=== PATIENT | female | born 1935 | race Caucasian/White ===

== ENCOUNTER 2021-10-03 11:15 | Outpatient (RCR) | payer MEDICARE, SELFPAY | END 2021-11-18 11:22 | disposition home or self-care (01) | PROVIDERS: PCP Internal Medicine; Visit Provider Orthopaedic Surgery Sports Medicine | DX: M25.551 Pain in right hip (principal); Z51.89 Encounter for other specified aftercare | CPT/HCPCS: 97110 ==

== ENCOUNTER 2022-06-30 10:54 | Outpatient (CLI) | payer MEDICARE, SELFPAY ==
--- NOTE | 2022-06-30 11:30 | CRLHL7_ITS ---
For Patients: As a result of the Century Cures Act, medical imaging exams and procedure reports are released immediately into your electronic medical record. You may view this report before your referring provider. If you have questions, please contact your health care provider. BILATERAL SCREENING MAMMOGRAM WITH COMPUTER-AIDED DETECTION AND TOMOSYNTHESIS TECHNIQUE: CC and MLO views were obtained. These mammographic images have been obtained using full-field digital technique. These mammographic images were interpreted with the benefit of computer-aided detection. Breast Tomosynthesis was used in this interpretation. COMPARISON FILM: 04/24/17, 08/18/15, 06/08/14. FINDINGS: There are scattered areas of fibroglandular density IMPRESSION: There is no radiographic evidence for malignancy. ASSESSMENT: BI-RADS Category 2: Benign RECOMMENDATION: Routine screening mammogram in 1 year. A lay language report of this examination will be provided to the patient. Jai Wright M.D. Diagnostic/Nuclear Medicine Radiologist [email or web address] LILI/Dictated by: Jai Wright MD @ 07/03/2022 8:20:00 AM (Electronically Signed)
== END 2022-06-30 10:55 | disposition home or self-care (01) ==
LOC: MAMMO 10:55
PROVIDERS: PCP Internal Medicine; Visit Provider Internal Medicine
DX: Z12.31 Encounter for screening mammogram for malignant neoplasm of breast (principal)
CPT/HCPCS: 77063; 77067

== ENCOUNTER 2022-12-15 12:10 | Outpatient (CLI) | payer MEDICARE, SELFPAY | END 2022-12-15 12:11 | disposition home or self-care (01) | LOC: AMB 12-17 13:40 | PROVIDERS: PCP Internal Medicine; Visit Provider Family Medicine | DX: R53.1 Weakness (principal) | CPT/HCPCS: A0998 ==

== ENCOUNTER 2022-12-15 15:25 | Outpatient (CLI) | payer MEDICARE, SELFPAY | END 2022-12-15 15:26 | disposition home or self-care (01) | LOC: AMB 12-18 19:00 | PROVIDERS: PCP Internal Medicine; Visit Provider Family Medicine | DX: R53.1 Weakness (principal) | CPT/HCPCS: A0425; A0427 ==

== ENCOUNTER 2022-12-15 15:58 | Observation (INO) | payer MEDICARE, SELFPAY ==
[2022-12-15 16:00] VITALS: BP 143/82; PULSE 81; RESP 16; TEMP 36.8; O2SAT 95; BMI 29.8
--- NOTE | 2022-12-15 16:16 | CRLHL7_ITS ---
For Patients: As a result of the Century Cures Act, medical imaging exams and procedure reports are released immediately into your electronic medical record. You may view this report before your referring provider. If you have questions, please contact your health care provider. INDICATION: weakness, falls, left leg weakness. TECHNIQUE: Head CT without contrast. COMPARISON: None. FINDINGS: CSF spaces: Within normal limits for age. Brain parenchyma and extra-axial spaces: There are nonspecific low attenuation white matter changes consistent with chronic microvascular disease. Mild diffuse cerebral atrophy. There is mild dilatation of the bilateral lateral ventricles and 3rd ventricle. No sign of mass, hemorrhage, or midline shift. Skull base and calvarium: The visualized paranasal sinuses and mastoid air cells demonstrate no acute or significant findings. The visualized orbits are grossly unremarkable. No skull fractures. IMPRESSION: No acute intracranial process identified. Chronic findings including small vessel ischemic changes and diffuse cerebral atrophy. Enlargement of the bilateral lateral ventricles and 3rd ventricle felt to be slightly more than the visualized atrophy. This can be seen in the setting of normal pressure hydrocephalus. Correlate with clinical and laboratory findings, and consider further valuation with MRI. Please note that all CT scans at this facility use dose modulation, iterative reconstruction, and/or weight-based dosing when appropriate to reduce radiation dose to as low as reasonably achievable. Dictated by Chi Garcia MD @ 12/15/2022 6:07:34 PM (Electronically Signed)
[2022-12-15 16:22] LABS: Lactate* 0.8 mmol/L (0.5-1.9)
[2022-12-15 16:24] LABS: Basophils Absolute Auto 0.03 K/uL (0.00-0.30); Basophils Percent Auto 0.4 % (0.0-3.0); Eosinophils Absolute Auto 0.16 K/uL (0.00-0.50); Eosinophils Percent Auto 2.1 % (0.0-7.0); Hematocrit 40.2 % (33.0-51.0); Hemoglobin* 12.9 gm/dL (12.0-16.0); Immature Granulocytes Abs Auto 0.02 K/uL (0.00-0.30); Immature Granulocytes Pct Auto 0.3 %; Lymphocytes Percent Auto 7.2 % (20-44); Mean Corpuscular HGB Conc 32 gm/dL (32-36); Mean Corpuscular Hemoglobin 30 pg (26-34); Mean Corpuscular Volume 93 fL (80-100); Monocytes Percent Auto 8.5 % (0.0-11.0); Neutrophils Percent Auto 81.5 % (42.0-72.0); Platelet Count* 269 K/uL (140-440); RDW Coefficient of Variation % 13.6 % (11.5-15.5); Red Blood Count 4.31 m/uL (4.00-5.20); White Blood Count* 7.53 K/uL (4.50-11.00)
[2022-12-15 16:30] LABS: Slide Review Reflex No
[2022-12-15] MEDS: 0.9 % SODIUM CHLORIDE 1000 ml 1,000 ML IV ×2 (16:30→20:44)
--- NOTE | 2022-12-15 16:32 | ED_ITS ---
HPI - General Adult General Date Seen: 12/15/22 Chief complaint: Weakness Stated complaint: Weakness Time Seen by Provider: 12/15/22 16:15 History of Present Illness HPI narrative: This is a pleasant 87-year-old female who presents to the ER today by EMS from her assisted living for evaluation of generalized weakness and falls. History from EMS is that she is generally healthy and has not had any recent illnesses. She did have her coronavirus and influenza vaccines yesterday. She was weak this morning when she got up out of bed and had an episode where she slid onto the floor while trying to put her pants on this morning. EMS responded to that and did a lift assist. She declined transport during her 1st fall. Later on she had laid down on the couch but then was too weak to get off the couch so EMS was called again. They brought her here. She has been mildly nauseous all day. They administered 4 mg of Zofran ODT and she is now feeling better. Her vitals are stable. She had no other complaints. History from the patient is that she has been healthy and well lately. No recent fever, chills, cough, shortness of breath, vomiting, or diarrhea. No urinary symptoms. She did get her vaccines yesterday. She notes that she was very tired and run down last night so she went to bed early. She slept all night from 9:00 p.m. until 7:30 a.m. when she woke up. She notes when she woke up this morning that her left leg seemed to be a little bit weak. No numbness. No weakness in her right leg or other extremities. She also just felt a little bit run down and weak all over. She had trouble putting her pants on. But she is trying to put her pants on and pulled him up she slid off the edge of her bed and down onto the floor. She was not injured when she fell. She recalls that she did have EMS respond for lift assist but she declined transport at that time. She regrets that decision because subsequently she was able to walk out into her apartment and sit in a chair. She did need a little bit for breakfast and had some peanut butter bread for lunch. She laid down on the couch this afternoon and was too weak to get up again. She has no other complaints. She did hit her head. No headache. No blurry vision. She was nauseous but that is improved after Zofran. No vomiting today. No diarrhea. No black or bloody stools. No dysuria, urgency, frequency. No abdominal pain. No chest pain. No palpitations. She does note that her left leg does feel a bit weaker than her right leg. No other focal weakness or numbness. She has no previous history of strokes. No previous history of cardiovascular disease. No diabetes. No seizures. No cancer. She is not on any routine prescription medications. She does have arthritis and has some chronic pain in her right hip. She has seen orthopedics for that in the past and was told that she is not a candidate for hip replacement surgery. 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, [facility]) Status post arthroscopic surgery of right knee (06/06/10) ?Z98.890 - Other specified postprocedural states (ICD-10) History of tonsillectomy (06/06/10) ?Z90.89 - Acquired absence of other organs (ICD-10) History of laparoscopic cholecystectomy (12/03/14) ?Z90.49 - Acquired absence of other specified parts of digestive tract (ICD- 10) History of section ?Z98.891 - History of uterine scar from previous surgery (ICD-10) History of blepharoplasty (2004) ?Z98.890 - Other specified postprocedural states (ICD-10) History of bilateral cataract extraction (2019) ?Z98.41 - Cataract extraction status, right eye (ICD-10) ?Z98.42 - Cataract extraction status, left eye (ICD-10) History of appendectomy (1942) ?Z90.49 - Acquired absence of other specified parts of digestive tract (ICD- 10) Exam Narrative: Exam Narrative: Constitutional: Appears well-developed and well-nourished. Alert. Conversant. Non toxic. HENT: Head: Atraumatic. Nose: Nose normal. Mouth/Throat: Oral mucosa is clear and moist. no trismus. Pharynx normal. Tonsils symmetric. No tonsillar enlargement, erythema, or exudate. Eyes: Conjunctivae normal. EOM normal. Pupils equal, round, and reactive to light. No scleral icterus. Neck: Normal range of motion. Neck supple. No tracheal deviation present. No JVD Cardiovascular: Normal rate, regular rhythm. No gallop. No friction rub. No murmur heard. Symmetric radial and PT/DP artery pulses Pulmonary/Chest: Effort normal. No stridor. No respiratory distress. No wheezes. No rales. No rhonchi . No tenderness. Abdominal: Soft. Bowel sounds normal. No distension. No mass. No pulsatile mass No tenderness. No rebound. No guarding. No CVA tenderness Musculoskeletal: RUE: Normal range of motion. No tenderness. No deformity LUE: Normal range of motion. No tenderness. No deformity RLE: Normal range of motion. No edema. No tenderness. No deformity LLE: Normal range of motion. No edema. No tenderness. No deformity Lymph: No cervical adenopathy. Neurological: Mental status normal. Attention normal. Alert and oriented x3. GCS 15. Memory normal. Speech fluent. Cognition normal. Cranial Nerves intact II-XII except I did not formally test gag or visual acuity. EOMI. Palate elevates symmetrically and tongue protrudes in the midline. Strength: 5/5 trapezius on the right and left 5/5 deltoid on the right and left 5/5 biceps on the right and left 5/5 triceps on the right and left 5/5 dynamometer tester engine on the right and left 5/5 thumb opposition on the right and le ft 5/5 finger abduction on the right and le ft Patient says that her left leg feels a little bit weaker than the right leg but she has symmetric strength on my exam. 5/5 hip flexors (L3) on the right and le ft 5/5 quadriceps (L4) on the right and lef t 5/5 tibialis anterior on the right and l eft 5/5 EHL (L5) on the right and left 5/5 gastrocnemius (S1) on the right and left 5/5 hamstring on the right and left Sensation intact to light touch in both upper extremities (C4-T1) Sensation intact to light touch in Both lower extremities (L4-S1). Finger to nose and coordination normal. Gait not assessed due to generalized weakness. 6. Normal coordination Skin: Skin is warm and dry. No rash noted. No pallor. Normal capillary refill. Psychiatric: Normal mood. Normal affect. Const: Vital Signs, click to edit/add: Vital Signs - 24 hr 12/15/22 16:00 Temperature 98.3 F Pulse Rate [Pulse Oximeter] 81 Respiratory Rate 16 Blood Pressure [Le ft Upper Arm] 143/82 H Pulse Oximetry 95 Oxygen Delivery Me thod Room Air Course Reevaluation(s) Reevaluation #1: Recheck-feeling better after IV fluids. Now at least able to get up and stand at the bedside. Able to walk with the assistance of a walker into the bathroom. Urinated a small amount but was not able to collect the sample. After that night able to urinate any further. Has completed a full L of fluids but still not producing urine. . Reevaluation #2: Still not able to provide urine . 2 L ordered Reevaluation #3: Discussed with patient, her , her daughter. She is doing better but family still concerned about her weakness and risk for falls. is supportive but generally frail and has difficulty with vision. He requests that we get her admitted for observation overnight because he is not able to care for her at home. With risk of falls I feel that is reasonable. Vital Signs Vital signs: Initial Vital Signs Temperature 98.3 F 12/15/22 16:00 Temperature Source Temporal Artery Scan 12/15/22 16:00 Pulse Rate 81 12/15/22 16:00 Respiratory Rate 16 12/15/22 16:00 Blood Pressure 143/82 H 12/15/22 16:00 Blood Pressure Mean 102 12/15/22 16:00 Blood Pressure Position Semi-Fowlers 12/15/22 16:00 Pulse Oximetry 95 12/15/22 16:00 Oxygen Delivery Method Room Air 12/15/22 16:00 Vital Signs Temperature 98.3 F 12/15/22 16:00 Pulse Rate 81 12/15/22 16:00 Respiratory Rate 16 12/15/22 16:00 Blood Pressure 143/82 H 12/15/22 16:00 Pulse Oximetry 95 12/15/22 16:00 Oxygen Delivery Method Room Air 12/15/22 16:00 Temperature 98.3 F 12/15/22 16:00 Pulse Rate 81 12/15/22 16:00 Respiratory Rate 16 12/15/22 16:00 Blood Pressure 143/82 H 12/15/22 16:00 Pulse Oximetry 95 12/15/22 16:00 Oxygen Delivery Method Room Air 12/15/22 16:00 Medical Decision Making MDM Narrative Medical decision making narrative: Pleasant 87-year-old female brought to the ER today by EMS from her assisted living for generalized weakness. She has had 1 episode where she slid off the edge of her bed today while trying to put her pants on another episode of weakness where she could get off the couch. She did have her COVID and flu vaccines yesterday so potential cause for weakness would be immune reaction to those vaccines. Broad differential is considered. She did notice a little bit of weakness in her left leg since she got up this morning. On my exam I can not detect any clear asymmetric strength. No sensory deficits. Noncontrast head CT is obtained and is negative for any acute intracranial hemorrhage. MRI would be more sensitive for any acute infarct but is not indicated emergently here in the ER. She is outside the window for IV thrombolytics. No suspicion for LVO to require CT angio at this time. Upon further recheck, patient is clearly having symmetric strength in her leg. When we discussed her left leg weakness further she says that she always has a bit of a ?stiff leg? and trouble moving her leg in the morning. This morning was not really any different than normal other than she had superimposed generalized weakness. says he did notice any focal deficits this morning just that she was very weak. CT scan does suggest atrophy and enlarged ventricles that could be out of proportion for atrophy, indicating possible hydrocephalus. However she does not have any long-term mental status changes, headaches, nausea, visual disturbance or any other unsteady gait prior to today. At this point no clear evidence that there is active hydrocephalus. Her strength seems to be improving for fairly markedly with IV fluids. Will monitor overnight. If she has persistent weakness or other gait instability tomorrow would recommend that hospitalist obtain MRI. If she is improved, MRI may not be necessary. She is not coughing. No shortness of breath. No chest pain. COVID negative. No evidence for CHF on exam. EKG is nonischemic and troponin is negative. Hemoglobin is normal. No symptoms of GI bleeding. No abdominal pain. She did have mild nausea. Kidney function electrolytes normal. Urinalysis is ordered but not obtained yet. She was not able to collect a urine sample for us and is subsequently not producing any more urine. She is receiving a 2 L of IV fluids and also oral fluids. She will be admitted to the hospitalist service and they will follow-up on the urine results. Lab Data Labs: Lab Results 12/15/22 12/15/22 Range/Units 16:15 16:21 WBC 7.53 (4.50-11.00) K/uL RBC 4.31 (4.00-5.20) m/uL Hgb 12.9 (12.0-16.0) gm/dL Hct 40.2 (33.0-51.0) % MCV 93 (80-100) fL MCH 30 (26-34) pg MCHC 32 (32-36) gm/dL RDW Coeff of Myke 13.6 (11.5-15.5) % Plt Count 269 (140-440) K/uL Neut % (Auto) 81.5 H (42.0-72.0) % Lymph % (Auto) 7.2 L (20-44) % [place] % (Auto) 8.5 (0.0-11.0) % Eos % (Auto) 2.1 (0.0-7.0) % Baso % (Auto) 0.4 (0.0-3.0) % Neut # (Auto) 6.10 (1.7-7.0) K/uL Lymph # (Auto) 0.50 L (0.90-2.90) K/uL [place] # (Auto) 0.60 (0.00-0.90) K/UL Eos # (Auto) 0.16 (0.00-0.50) K/uL Baso # (Auto) 0.03 (0.00-0.30) K/uL Abs Immat Gran (auto) 0.02 (0.00-0.30) K/uL Imm/Tot Granulo (auto) 0.3 % Sodium 138 (135-149) mmol/L Potassium 3.8 (3.6-5.1) mmol/L Chloride 108 (96-114) mmol/L Carbon Dioxide 22 (20-32) mmol/L Anion Gap 8 (7-15) mEq/L BUN 22 (7-30) mg/dL Creatinine 0.8 (0.5-1.5) mg/dL Estimated Creat Clear 38.54 Estimated GFR 71 ml/min Glucose 104 (60-115) mg/dL Lactate 0.8 (0.5-1.9) mmol/L Calcium 8.7 (8.4-10.6) mg/dL Troponin I < 0.01 L (0.01-0.04) ng/mL SARS-CoV-2 (PCR) Negative SARS-CoV-2 (Negative) Influenza Type A (PCR) Negative PCR FLU A (Negative) Influenza Type B (PCR) Negative PCR FLU B (Negative) RSV (PCR) Negative PCR RSV (Negative) Imaging Data CT scan - head: Attestation: I have reviewed the pertinent imaging results. Radiologist's impression: IMPRESSION: No acute intracranial process identified. Chronic findings including small vessel ischemic changes and diffuse cerebral atrophy. Enlargement of the bilateral lateral ventricles and 3rd ventricle felt to be slightly more than the visualized atrophy. This can be seen in the setting of normal pressure hydrocephalus. Correlate with clinical and laboratory findings, and consider further valuation with MRI ECG Data Attestation: I personally reviewed and interpreted this ECG as follows: Interpretation: Normal sinus rhythm rate 70 NJ 152 QRS axis normal axis. No pathologic Q-waves. ST segment/T wave: No ST segment elevation or depression QTc: 438 Discharge Plan Discharge Clinical Impression: Generalized weakness, Fall, Dehydration Patient Disposition: Admitted As Observation
[2022-12-15 16:38] LABS: Chloride* 108 mmol/L (96-114); Potassium* 3.8 mmol/L (3.6-5.1); Sodium* 138 mmol/L (135-149)
[2022-12-15 16:41] LABS: Anion Gap 8 mEq/L (7-15); Blood Urea Nitrogen* 22 mg/dL (7-30); Carbon Dioxide* 22 mmol/L (20-32); Creatinine* 0.8 mg/dL (0.5-1.5); Est. Creatinine Clearance* 38.54; Estimated Glomerular Filt Rate 71 ml/min
[2022-12-15 16:42] LABS: Calcium* 8.7 mg/dL (8.4-10.6); Glucose* 104 mg/dL (60-115)
[2022-12-15 16:56] LABS: Troponin I* < 0.01 ng/mL (0.01-0.04)
[2022-12-15 17:07] LABS: PCR FLU A Negative PCR FLU A (Negative); PCR FLU B Negative PCR FLU B (Negative); PCR RSV Negative PCR RSV (Negative)
[2022-12-15 17:09] LABS: SARS PCR* Negative SARS-CoV-2 (Negative)
--- NOTE | 2022-12-15 18:57 | PM.IMHP1 ---
Hospitalist- H&P: HPI History of Present Illness Date Seen: 12/15/22 Chief complaint: Weakness Narrative: Jessica Wren is a 87 year old female who was BIB[facility] from [facility] to the ER today for weakness and a fall. This morning she slid off of her bed to the floor while getting dressed, no significant injuries at that time. EMS came for a lift assist; she declined ER visit at that time. During the day, her weakness persisted and after lunch she was too weak to get off of her couch so she called EMS again for ED transfer. Associated symptoms include intermittent nausea and hasn't eaten well today; specifically denies chest pain or shortness of breath. She has had no other GI or symptoms. Jessica notes that she had both her influenza and COVID boosters yesterday. ER Course and Findings: - reassuring CBC and CMP, negative troponin - head CT revealed no acute findings, mild enlargement of bilateral lateral ventricles and 3rd ventricle (recommendation to consider MRI if clinical concerns for NPH) - no acute findings on EKG - received 1L of NS, still was unable to provide urine sample, 2nd L initiated upon arrival to the floor - patient lives in assisted living with her , who is frail and did not feel comfortable taking her home this evening She is admitted to the hospital for weakness. Jessica is generally healthy. Only new prescription medications are glaucoma eye drops. PCP is Dr. De La Rosa. She sees him sparingly. 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) ?Q62.39 - Other obstructive defects of renal pelvis and ureter (ICD-10) Frailty syndrome in geriatric patient ?R54 - Age-related physical debility (ICD-10) Osteoarthritis of right hip ?M16.11 - Unilateral primary osteoarthritis, right hip (ICD-10) Surgical History (Updated 11/10/22 @ 12:19 by Mattie Mendosa ~ [facility], [facility]) Status post arthroscopic surgery of right knee (06/06/10) ?Z98.890 - Other specified postprocedural states (ICD-10) History of tonsillectomy (06/06/10) ?Z90.89 - Acquired absence of other organs (ICD-10) History of laparoscopic cholecystectomy (12/03/14) ?Z90.49 - Acquired absence of other specified parts of digestive tract (ICD-10) History of section ?Z98.891 - History of uterine scar from previous surgery (ICD-10) History of blepharoplasty (2004) ?Z98.890 - Other specified postprocedural states (ICD-10) History of bilateral cataract extraction (2019) ?Z98.41 - Cataract extraction status, right eye (ICD-10) ?Z98.42 - Cataract extraction status, left eye (ICD-10) History of appendectomy (194) ?Z90.49 - Acquired absence of other specified parts of digestive tract (ICD-10) Social History (Updated 12/15/22 @ 20:01 by Marielena Buchanan MD) Narrative: Lives with José Miguel in [facility] assisted living. Daughter Diana is POA. 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 She is a nonsmoker, no ETOH use. Requests Full Code status at this time. What is your current living situation?: I presently have a place to live Problems where you live: no known problems Problems where you live details: na In the past 12 months, utilities in danger of being shut off: no In past 12 months, lack of transportation kept you from medical appts, meetings, work, or getting things needed for daily living: no In the past 12 mos, have been you worried that your food would run out before you had money to buy more?: never true In the past 12 mos, the food you bought just didn't last and you didn't have money to buy more?: never true Highest level of school completed/degree received: Associate degree: academic program Smoking Status: Former smoker How often do you have a drink containing alcohol: 2-3 times a week Alcohol type: wine AUDIT-C Alcohol total score: 3 Non-prescribed substance use: denies use Caffeine: Yes (1 cup) How often does anyone, including family, friends and others, physically hurt you: never How often does anyone, including family, friends and others, insult or talk down to you: never How often does anyone, including family, friends and others, threaten you with harm: never How often does anyone, including family, friends and others, scream or curse at you: never service: No Meds Home Medications and Allergies Home Medications Medication Instructions Recorded Confirmed Type dorzolamide 22.3 mg-timolol 6.8 1 drp ophthalmic (eye) BID 12/15/22 12/15/22 History mg/mL eye drops latanoprost 0.005 % eye drops 1 drp ophthalmic (eye) HS 12/15/22 12/15/22 History Allergies Allergy/AdvReac Type Severity Reaction Status Date / Time No Known Allergies Allergy Verified 12/15/22 16:00 Exam Narrative: Exam Narrative: GEN: Alert and oriented, sitting comfortably in bed and answering questions appropriately, nontoxic HEENT: EOMIs bilaterally, no scleral icterus CV: RRR, No concerning murmurs, rubs, or gallops R: LCTA bilaterally without concerning wheezing Ext: wwp, no concerning edema Skin: No concerning skin lesions or rashes on exposed skin Neuro: No focal deficits, no resting tremor Psych: Appropriate Const: Vital Signs, click to edit/add: Vital Signs - 24 hr 12/15/22 16:00 Temperature 98.3 F Pulse Rate [Pulse Oximeter] 81 Respiratory Rate 16 Blood Pressure [Le ft Upper Arm] 143/82 H Pulse Oximetry 95 Oxygen Delivery Me thod Room Air Hospitalist - H&P: Result Labs Labs: Short CBC 12/15/22 Range/Units 16:15 WBC 7.53 (4.50-11.00) K/uL Hgb 12.9 (12.0-16.0) gm/dL Hct 40.2 (33.0-51.0) % Plt Count 269 (140-440) K/uL BMP 12/15/22 16:15 Sodium 138 Potassium 3.8 Chloride 108 Carbon Dioxide 22 BUN 22 Creatinine 0.8 Glucose 104 Calcium 8.7 Cardiac Enzymes 12/15/22 Range/Units 16:15 Troponin I < 0.01 L (0.01-0.04) ng/mL Assessment and Plan Assessment and plan (1) Generalized weakness: Problem comment: - ddx includes vaccine reaction, viral illness, atypical cardiac disease - data from ED is reassuring at this time - admit to observation, follow symptoms - PT/OT evaluations in the morning - incidental finding of dilated ventricles on head CT; reviewed finding with patient. She has no other concerns of NPH symptoms, will discuss further with PCP Status: Acute (2) Dehydration: Problem comment: - continue low dose IVFs until eating and drinking normally Status: Acute (3) Fall: Status: Acute Plan - per above - SCDs and ambulation for ppx, anticipating short stay
[2022-12-15 19:40] VITALS: BP 135/65; PULSE 71; RESP 18; TEMP 37.1; O2SAT 96
[2022-12-15] MEDS: 0.9 % SODIUM CHLORIDE 1000 ml 1,000 ML 125 ML IV (20:47)
[2022-12-15] MEDS: DORZOLAMIDE/TIMOLOL 2-0.5% OPHTH 1 DROP EYE-BOTH (21:17)
[2022-12-15] MEDS: ACETAMINOPHEN 325 MG TABLET 975 MG PO (22:27)
[2022-12-15 23:00] VITALS: BP 130/81; PULSE 62; RESP 16; O2SAT 95
[2022-12-16 01:12] LABS: Appearance Urine Clear (Clear); Bilirubin Urine Negative (Negative); Blood Urine Negative (Negative); Color Urine Yellow (Yellow); Glucose Urine Negative (Negative); Ketones Urine Negative (Negative); Leukocyte Esterase Urine Trace (Negative); Nitrite Urine Negative (Negative); Protein Urine Negative (Negative); Urobilinogen Urine 0.2 (0.2-1.0)
[2022-12-16 01:16] LABS: Bacteria Urine Few; RBC Urine 0-2 (0-2)
[2022-12-16 03:09] VITALS: BP 137/70; PULSE 71; RESP 18; TEMP 36.5; O2SAT 94
[2022-12-16] MEDS: 0.9 % SODIUM CHLORIDE 1000 ml 1,000 ML 125 ML IV (04:26)
--- NOTE | 2022-12-16 06:29 | PC.NURSE ---
End of shift: Arrived to the floor around 1914. Pt A&O, pleasant and cooperative. VSS. Pt reports back pain, PRN Tylenol given w/ stated relief. SBA w/ walker and gait belt. Pt uses call light appropriately.
[2022-12-16 07:27] VITALS: BP 144/77; PULSE 69; RESP 18; TEMP 36.7; O2SAT 93
[2022-12-16] MEDS: DORZOLAMIDE/TIMOLOL 2-0.5% OPHTH 1 DROP EYE-BOTH (08:53)
[2022-12-16] MEDS: SODIUM CHLORIDE 0.9 % (FLUSH) 10 ML SYRINGE 5 ML IVF (08:55)
[2022-12-16 10:50] VITALS: BP 139/81; PULSE 77; RESP 18; TEMP 36.8; O2SAT 94
--- NOTE | 2022-12-16 10:53 | REH.OT ---
Orders received for OT eval and treat. Patient lives in an independent apartment at [facility] with spouse. She was dressed upon therapist arrival and able to don socks independently. No formal OT evaluation warranted.
--- NOTE | 2022-12-16 11:49 | PC.NURSE ---
Pt alert and oriented. Pt independent in room. Pt's IV removed catheter intact. Pt had no complaints of pain. Pt to discharge back to [facility] today. Pt stated she did not have a ride, Staff offered to call a cab for Pt. Pt refused and stated she would walk back to [facility].
--- NOTE | 2022-12-16 15:48 | P.DS_ITS ---
DS: Providers Provider Time Seen by Provider: 08:00 Date Seen: 12/16/22 Date of admission: 12/15/22 19:22 Primary care physician: Ed De La Rosa MD Admitting Clinician: Marielena Buchanan MD Consults: 12/15/22 20:11 Consult to Occupational Therapy [CONS] Routine Comment: Reason(s) for OT Consult:: Evaluate and Treat Any Restrictions?:: No Restrictions Consult to Physical Therapy [CONS] Routine Comment: Reason(s) for PT Consult:: Evaluate and Treat Any Restrictions?:: No Restrictions Attending Physician on discharge: Tony Barrientos MD Date of Discharge: 12/16/22 DS: Diagnosis Discharge Diagnosis (1) Generalized weakness: Status: Acute Problem details: - ddx includes vaccine reaction, viral illness, atypical cardiac disease - data from ED is reassuring at this time - admit to observation, follow symptoms - PT/OT evaluations in the morning - incidental finding of dilated ventricles on head CT; reviewed finding with patient. She has no other concerns of NPH symptoms, will discuss further with PCP (2) Fall: Status: Acute (3) Dehydration: Status: Acute Problem details: - continue low dose IVFs until eating and drinking normally (4) Small vessel disease, cerebrovascular: Status: Acute Problem details: CT head 12/15/22: No acute intracranial process identified. Chronic findings including small vessel ischemic changes and diffuse cerebral atrophy. Enlargement of the bilateral lateral ventricles and 3rd ventricle felt to be slightly more than the visualized atrophy. This can be seen in the setting of normal pressure hydrocephalus. Correlate with clinical and laboratory findings, and consider further valuation with MRI. (5) Cerebral ventricular distension: Status: Acute Problem details: CT scan of head 12/15/22: No acute intracranial process identified. Chronic findings including small vessel ischemic changes and diffuse cerebral atrophy. Enlargement of the bilateral lateral ventricles and 3rd ventricle felt to be slightly more than the visualized atrophy. This can be seen in the setting of normal pressure hydrocephalus. Correlate with clinical and laboratory findings, and consider further valuation with MRI. DS: Summary Hospital Course Hospital Course: 87-year-old woman presented with generalized weakness a day after she had her influenza and COVID vaccinations. Was dehydrated. Improved with rehydration. Physical therapy and Occupational therapy assessed and determined it was safe for her to return back to her living situation. Otherwise as specified above. Status at Discharge Functional status at discharge: uses cane/walker Time Spent with Patient Time attestation: Total time spent providing and/or coordinating discharge services: Time spent: Greater than 30 minutes Exam Narrative: Exam Narrative: GEN: Alert and oriented, sitting comfortably in bed and answering questions appropriately, nontoxic HEENT: EOMIs bilaterally, no scleral icterus CV: RRR, No concerning murmurs, rubs, or gallops R: LCTA bilaterally without concerning wheezing Ext: wwp, no concerning edema Skin: No concerning skin lesions or rashes on exposed skin Neuro: No focal deficits, no resting tremor. Ambulates with walker. Psych: Appropriate Const: Vital Signs, click to edit/add: Vital Signs - 24 hr 12/15/22 16:00 12/15/22 19:40 12/15/22 23:00 Temperature 98.3 F 98.8 F Pulse Rate [Pulse Oximeter] 81 62 Pulse Rate [Right Radial] 71 Respiratory Rate 16 18 16 Blood Pressure [Le ft Arm] 135/65 130/81 Blood Pressure [Le ft Upper Arm] 143/82 H Pulse Oximetry 95 96 95 Oxygen Delivery Me thod Room Air Room Air Room Air 12/16/22 03:09 12/16/22 07:27 12/16/22 10:50 Temperature 97.7 F 98.0 F 98.2 F Pulse Rate [Pulse Oximeter] 71 69 77 Pulse Rate [Right Radial] Respiratory Rate 18 18 18 Blood Pressure [Le ft Arm] 137/70 144/77 H 139/81 Blood Pressure [Le ft Upper Arm] Pulse Oximetry 94 93 94 Oxygen Delivery Me thod Room Air Room Air Room Air Documenting provider has reviewed patient's vital signs: yes DS: Data Data Completed and Pending Labs on day of discharge: Labs from last 24 hours 12/16/22 12/15/22 12/15/22 00:52 16:21 16:15 WBC 7.53 RBC 4.31 Hgb 12.9 Hct 40.2 MCV 93 MCH 30 MCHC 32 RDW Coeff of Myke 13.6 Plt Count 269 Neut % (Auto) 81.5 H Lymph % (Auto) 7.2 L [place] % (Auto) 8.5 Eos % (Auto) 2.1 Baso % (Auto) 0.4 Neut # (Auto) 6.10 Lymph # (Auto) 0.50 L [place] # (Auto) 0.60 Eos # (Auto) 0.16 Baso # (Auto) 0.03 Abs Immat Gran (auto) 0.02 Imm/Tot Granulo (auto) 0.3 Sodium 138 Potassium 3.8 Chloride 108 Carbon Dioxide 22 Anion Gap 8 BUN 22 Creatinine 0.8 Estimated Creat Clear 38.54 Estimated GFR 71 Glucose 104 Lactate 0.8 Calcium 8.7 Troponin I < 0.01 L Urine Color Yellow Urine Appearance Clear Urine pH 6.0 Ur Specific [place] 1.010 Urine Protein Negative Urine Glucose (UA) Negative Urine Ketones Negative Urine Blood Negative Urine Nitrite Negative Urine Bilirubin Negative Urine Urobilinogen 0.2 Ur Leukocyte Esterase Trace A Urine RBC 0-2 Urine WBC 5-10 A Ur Squamous Epith Cells None Urine Bacteria Few A SARS-CoV-2 (PCR) Negative SARS-CoV-2 Influenza Type A (PCR) Negative PCR FLU A Influenza Type B (PCR) Negative PCR FLU B RSV (PCR) Negative PCR RSV Preliminary micro results at discharge 12/16/22 Unknown Urine Culture - Preliminary Urine,Clean Catch Culture in Progress Imaging CT scan - head: Attestation: I have reviewed the pertinent imaging results. Radiologist's impression: 12/15/2022: [place] [address] Diagnostic Imaging Report Patient: Jessica Wren MR#: [id number] : 1935 Acct:[id number] Loc: ED Service Date: 12/15/[address]: Ordering Physician: Torsten Mathur M.D. Date of Service: 12/15/22 Procedure(s): CT head/brain wo con Accession Number(s): [id number] cc: Torsten Mathur M.D.; Ed De La Rosa M.D.~ For Patients: As a result of the Century Cures Act, medical imaging exams and procedure reports are released immediately into your electronic medical record. You may view this report before your referring provider. If you have questions, please contact your health care provider. INDICATION: weakness, falls, left leg weakness. TECHNIQUE: Head CT without contrast. COMPARISON: None. FINDINGS: CSF spaces: Within normal limits for age. Brain parenchyma and extra-axial spaces: There are nonspecific low attenuation white matter changes consistent with chronic microvascular disease. Mild diffuse cerebral atrophy. There is mild dilatation of the bilateral lateral ventricles and 3rd ventricle. No sign of mass, hemorrhage, or midline shift. Skull base and calvarium: The visualized paranasal sinuses and mastoid air cells demonstrate no acute or significant findings. The visualized orbits are grossly unremarkable. No skull fractures. IMPRESSION: No acute intracranial process identified. Chronic findings including small vessel ischemic changes and diffuse cerebral atrophy. Discharge Plan Discharge Disposition: Home, Self-Care Date of Admission: 12/15/22 19:22 Attending Provider on Discharge: Tony Barrientos Primary Care Provider: Ed De La Rosa Condition: Improved Anticipated Discharge Date/Time: 12/16/22 12:30 Discharge Medications: Continued latanoprost 0.005 % drops 1 drp ophthalmic (eye) HS dorzolamide-timolol 22.3-6.8 mg/mL drops 1 drp ophthalmic (eye) BID Discharge Orders: Discharge Order (Routine); Ordered 12/16/22 Ordered By: Tony Barrientos Patient Education: Dehydration (DC) Additional Instructions: 1. Follow-up with primary care physician in 3-7 days; 2. Return to hospital or emergency department sooner if needed; 3. Adequate hydration; 4. Follow- up with primary care physician about significance of dilated intracerebral ventricles found on 12/15/22 CT scan of head. Activity Level: No Restrictions and Activity as Tolerated Discharge Diet: Regular Follow Up Appointments: Ed De La Rosa MD [Primary Care Provider] - 12/20/22 10:15 am ([facility] for follow-up care.) [facility]: [facility] Info Instructions
== END 2022-12-16 12:28 | disposition home or self-care (01) ==
LOC: ED 18:36 → MEDSURG 19:23
PROVIDERS: Admitting Provider Family Medicine; Emergency Provider Emergency Medicine; PCP Internal Medicine; Visit Provider Family Medicine
DX: I67.9 Cerebrovascular disease, unspecified (principal); G93.89 Other specified disorders of brain; E86.0 Dehydration; M25.551 Pain in right hip; G89.29 Other chronic pain; M16.11 Unilateral primary osteoarthritis, right hip; W19.XXXA Unspecified fall, initial encounter; M62.81 Muscle weakness (generalized); R29.6 Repeated falls; Q62.39 Other obstructive defects of renal pelvis and ureter; Z98.890 Other specified postprocedural states; Z90.89 Acquired absence of other organs; Z90.49 Acquired absence of other specified parts of digestive tract; Z98.891 History of uterine scar from previous surgery; Z98.41 Cataract extraction status, right eye; Z98.42 Cataract extraction status, left eye; Z87.891 Personal history of nicotine dependence
CPT/HCPCS: 36415; 70450; 80048; 81001; 83605; 84484; 85025; 87086; 87631; 93005; 96360; 96361; 97161; 99283; 99285; A9270; G0378; J7030

== ENCOUNTER 2023-01-16 22:38 | Outpatient (CLI) | payer MEDICARE, SELFPAY | END 2023-01-16 22:39 | disposition home or self-care (01) | LOC: AMB 01-17 10:21 | PROVIDERS: PCP Internal Medicine; Visit Provider Emergency Medicine Emergency Medical Services | DX: R53.1 Weakness (principal) | CPT/HCPCS: A0998 ==

== ENCOUNTER 2023-01-18 22:08 | Outpatient (CLI) | payer MEDICARE, SELFPAY | END 2023-01-18 22:09 | disposition home or self-care (01) | PROVIDERS: PCP Internal Medicine; Visit Provider Family Medicine | DX: R53.1 Weakness (principal) | CPT/HCPCS: A0425; A0429 ==

== ENCOUNTER 2023-01-18 22:34 | Emergency (ER) | payer MEDICARE, SELFPAY ==
[2023-01-18 22:40] VITALS: BP 154/79; PULSE 80; RESP 20; TEMP 37.1; O2SAT 97; BMI 28.2
[2023-01-18 23:00] LABS: Appearance Urine Cloudy (Clear); Bilirubin Urine Negative (Negative); Blood Urine Negative (Negative); Color Urine Yellow (Yellow); Glucose Urine Negative (Negative); Ketones Urine Trace (Negative); Leukocyte Esterase Urine 1+ (Negative); Nitrite Urine Negative (Negative); Protein Urine Negative (Negative); Specific Gravity Urine 1.015 (1.000-1.030); Urobilinogen Urine 0.2 (0.2-1.0)
--- NOTE | 2023-01-18 23:09 | ED_ITS ---
HPI - Weakness General Chief complaint: Weakness Stated complaint: Fall Time Seen by Provider: 01/18/23 22:40 History of Present Illness HPI Narrative: This 87-year-old female comes in reporting generalized weakness over the past several days. Today she had difficulty getting up from a sitting position and needed help as she was unable to do so under her own strength. She was able to get up and walk but did so with feeling of generalized weakness also. She states that she sits a lot and probably is deconditioned. She does report runny nose and some cough. She has not had any fevers. She does not report any injury and does not have any particular pain when attempting to get up to ambulate. Related Data Home Medications Medication Instructions Recorded Confirmed dorzolamide 22.3 mg-timolol 6.8 1 drp ophthalmic (eye) BID 12/15/22 01/18/23 mg/mL eye drops latanoprost 0.005 % eye drops 1 drp ophthalmic (eye) HS 12/15/22 01/18/23 Previous Rx's Medication Instructions Recorded nirmatrelvir 150 mg-ritonavir 100 See Rx Instructions PO .COMPLEX 01/18/23 mg tablets in a dose pack #20 ea (Paxlovid) Allergies Allergy/AdvReac Type Severity Reaction Status Date / Time No Known Allergies Allergy Verified 01/18/23 22:42 Review of Systems Status of ROS: Reports: 10 or more systems reviewed and unremarkable except as noted in History and below Narrative: Constitutional: No fevers, no weight gain or loss. Eyes: No discharge. No vision changes. HENT: No congestion, no sore throat, no ear pain. Cardiovascular: No chest pain, no palpitations. Respiratory: No shortness of breath, no wheezes, no cough. Gastrointestinal: No abdominal pain, no vomiting, no diarrhea. Genitourinary: No dysuria, no hematuria. Musculoskeletal: Normal range of motion. Skin: No rashes, no pruritis. Neurological: No dizziness, weakness, sensory change, speech change. Endo/Heme/Allergies: No bruising or bleeding. No polydipsia. Pysch: no suicidality, no anxiety, no insomnia. All other systems reviewed and are negative. 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) ?Q62.39 - Other obstructive defects of renal pelvis and ureter (ICD-10) Frailty syndrome in geriatric patient ?R54 - Age-related physical debility (ICD-10) Osteoarthritis of right hip ?M16.11 - Unilateral primary osteoarthritis, right hip (ICD-10) Surgical History Status post arthroscopic surgery of right knee (06/06/10) ?Z98.890 - Other specified postprocedural states (ICD-10) History of tonsillectomy (06/06/10) ?Z90.89 - Acquired absence of other organs (ICD-10) History of laparoscopic cholecystectomy (12/03/14) ?Z90.49 - Acquired absence of other specified parts of digestive tract (ICD- 10) History of section ?Z98.891 - History of uterine scar from previous surgery (ICD-10) History of blepharoplasty (2004) ?Z98.890 - Other specified postprocedural states (ICD-10) History of bilateral cataract extraction (2019) ?Z98.41 - Cataract extraction status, right eye (ICD-10) ?Z98.42 - Cataract extraction status, left eye (ICD-10) History of appendectomy (194) ?Z90.49 - Acquired absence of other specified parts of digestive tract (ICD- 10) Social History (Updated 12/15/22 @ 20:01 by Marielena Buchanan MD) Narrative: Lives with José Miguel in [facility] assisted living. Daughter Diana is POA. 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 She is a nonsmoker, no ETOH use. Requests Full Code status at this time. What is your current living situation?: I presently have a place to live Problems where you live: no known problems Problems where you live details: na In the past 12 months, utilities in danger of being shut off: no In past 12 months, lack of transportation kept you from medical appts, meetings, work, or getting things needed for daily living: no In the past 12 mos, have been you worried that your food would run out before you had money to buy more?: never true In the past 12 mos, the food you bought just didn't last and you didn't have money to buy more?: never true Highest level of school completed/degree received: Associate degree: academic program Smoking Status: Former smoker Second hand tobacco smoke exposure: No How often do you have a drink containing alcohol: 2-3 times a week Alcohol type: wine AUDIT-C Alcohol total score: 3 Non-prescribed substance use: denies use Caffeine: Yes (1 cup) How often does anyone, including family, friends and others, physically hurt you : never How often does anyone, including family, friends and others, insult or talk down to you: never How often does anyone, including family, friends and others, threaten you with harm: never How often does anyone, including family, friends and others, scream or curse at you: never Little interest or pleasure in doing things: not at all Feeling down, depressed, or hopeless: not at all service: No Exam Const: Vital Signs, click to edit/add: Vital Signs - 24 hr 01/18/23 22:40 Temperature 98.8 F Pulse Rate [Right Pulse Oximeter] 80 Respiratory Rate 20 Blood Pressure [Ri ght Upper Arm] 154/79 H Pulse Oximetry 97 Oxygen Delivery Me thod Room Air Course Vital Signs Vital signs: Initial Vital Signs Temperature 98.8 F 01/18/23 22:40 Temperature Source Temporal Artery Scan 01/18/23 22:40 Pulse Rate 80 01/18/23 22:40 Respiratory Rate 20 01/18/23 22:40 Blood Pressure 154/79 H 01/18/23 22:40 Blood Pressure Mean 104 01/18/23 22:40 Blood Pressure Position Sitting 01/18/23 22:40 Pulse Oximetry 97 01/18/23 22:40 Oxygen Delivery Method Room Air 01/18/23 22:40 Vital Signs Temperature 98.8 F 01/18/23 22:40 Pulse Rate 80 01/18/23 22:40 Respiratory Rate 20 01/18/23 22:40 Blood Pressure 154/79 H 01/18/23 22:40 Pulse Oximetry 97 01/18/23 22:40 Oxygen Delivery Method Room Air 01/18/23 22:40 Temperature 98.8 F 01/18/23 22:40 Pulse Rate 80 01/18/23 22:40 Respiratory Rate 20 01/18/23 22:40 Blood Pressure 154/79 H 01/18/23 22:40 Pulse Oximetry 97 01/18/23 22:40 Oxygen Delivery Method Room Air 01/18/23 22:40 MDM - Weakness MDM Narrative Medical decision making narrative: This patient comes in reporting generalized weakness and also has an occasional cough with nasal congestion. Nasal pharyngeal swab returns positive for COVID. This patient is a candidate for Paxil of it so a prescription is provided for her. She is maintaining normal vital signs. She is able to get up and ambulate and is okay to be discharged home. Lab Data Labs: Lab Results 01/18/23 01/18/23 Range/Units 22:50 23:20 WBC 9.17 (4.50-11.00) K/uL RBC 3.85 L (4.00-5.20) m/uL Hgb 11.6 L (12.0-16.0) gm/dL Hct 36.1 (33.0-51.0) % MCV 94 (80-100) fL MCH 30 (26-34) pg MCHC 32 (32-36) gm/dL RDW Coeff of Myke 13.8 (11.5-15.5) % Plt Count 237 (140-440) K/uL Neut % (Auto) 72.5 H (42.0-72.0) % Lymph % (Auto) 14.1 L (20-44) % [place] % (Auto) 11.6 H (0.0-11.0) % Eos % (Auto) 0.7 (0.0-7.0) % Baso % (Auto) 0.2 (0.0-3.0) % Neut # (Auto) 6.60 (1.7-7.0) K/uL Lymph # (Auto) 1.30 (0.90-2.90) K/uL [place] # (Auto) 1.10 H (0.00-0.90) K/UL Eos # (Auto) 0.06 (0.00-0.50) K/uL Baso # (Auto) 0.02 (0.00-0.30) K/uL Abs Immat Gran (auto) 0.08 (0.00-0.30) K/uL Imm/Tot Granulo (auto) 0.9 % Sodium 138 (135-149) mmol/L Potassium 4.0 (3.6-5.1) mmol/L Chloride 106 (96-114) mmol/L Carbon Dioxide 24 (20-32) mmol/L Anion Gap 8 (7-15) mEq/L BUN 19 (7-30) mg/dL Creatinine 0.7 (0.5-1.5) mg/dL Estimated Creat Clear 38.54 Estimated GFR 84 ml/min Glucose 121 H (60-115) mg/dL Calcium 8.3 L (8.4-10.6) mg/dL Urine Color Yellow (Yellow) Urine Appearance Cloudy A (Clear) Urine pH 6.0 (5.0-8.5) Ur Specific [place] 1.015 (1.000-1.030) Urine Protein Negative (Negative) Urine Glucose (UA) Negative (Negative) Urine Ketones Trace A (Negative) Urine Blood Negative (Negative) Urine Nitrite Negative (Negative) Urine Bilirubin Negative (Negative) Urine Urobilinogen 0.2 (0.2-1.0) Ur Leukocyte Esterase 1+ A (Negative) Urine RBC 0-2 (0-2) Urine WBC 5-10 A (0-5) Ur Squamous Epith Cells Few (None-Few) Urine Bacteria Few A (None) Urine Mucus Few A (None) SARS-CoV-2 (PCR) POSITIVE SARS-CoV-2 A (Negative) Influenza Type A (PCR) Negative PCR FLU A (Negative) Influenza Type B (PCR) Negative PCR FLU B (Negative) RSV (PCR) Negative PCR RSV (Negative) Discharge Plan Discharge Clinical Impression: COVID-19 Patient Disposition: Home w/ Parent or Adult Condition: Unchanged Additional Instructions: Take medication as prescribed. Activity as tolerated. Use [id number] medicines also as needed and directed. Return if worsening symptoms occur. Prescriptions: New Paxlovid 150-100 mg tablets,dose pack See Rx Instructions .ROUTE .COMPLEX Qty: 20 0RF Rx Instructions: orally per package directions No Action latanoprost 0.005 % drops 1 drp ophthalmic (eye) HS dorzolamide-timolol 22.3-6.8 mg/mL drops 1 drp ophthalmic (eye) BID Follow Up/Referrals: Ed De La Rosa MD [Primary Care Provider] - Stand Alone Forms: [facility] Info Instructions
[2023-01-18 23:10] LABS: Bacteria Urine Few; Mucus Urine Few; RBC Urine 0-2 (0-2); Squamous Epithelial Cell Urine Few (None-Few)
[2023-01-18 23:25] LABS: PCR FLU A Negative PCR FLU A (Negative); PCR FLU B Negative PCR FLU B (Negative); PCR RSV Negative PCR RSV (Negative)
[2023-01-18 23:27] LABS: SARS PCR* POSITIVE SARS-CoV-2 (Negative)
[2023-01-18 23:28] LABS: Basophils Absolute Auto 0.02 K/uL (0.00-0.30); Basophils Percent Auto 0.2 % (0.0-3.0); Eosinophils Absolute Auto 0.06 K/uL (0.00-0.50); Eosinophils Percent Auto 0.7 % (0.0-7.0); Hematocrit 36.1 % (33.0-51.0); Hemoglobin* 11.6 gm/dL (12.0-16.0); Immature Granulocytes Abs Auto 0.08 K/uL (0.00-0.30); Immature Granulocytes Pct Auto 0.9 %; Lymphocytes Percent Auto 14.1 % (20-44); Mean Corpuscular HGB Conc 32 gm/dL (32-36); Mean Corpuscular Hemoglobin 30 pg (26-34); Mean Corpuscular Volume 94 fL (80-100); Monocytes Percent Auto 11.6 % (0.0-11.0); Neutrophils Percent Auto 72.5 % (42.0-72.0); Platelet Count* 237 K/uL (140-440); RDW Coefficient of Variation % 13.8 % (11.5-15.5); Red Blood Count 3.85 m/uL (4.00-5.20); White Blood Count* 9.17 K/uL (4.50-11.00)
[2023-01-18 23:32] LABS: Slide Review Reflex No
[2023-01-18 23:40] LABS: Chloride* 106 mmol/L (96-114); Sodium* 138 mmol/L (135-149)
[2023-01-18 23:43] LABS: Anion Gap 8 mEq/L (7-15); Blood Urea Nitrogen* 19 mg/dL (7-30); Carbon Dioxide* 24 mmol/L (20-32); Creatinine* 0.7 mg/dL (0.5-1.5); Est. Creatinine Clearance* 38.54; Estimated Glomerular Filt Rate 84 ml/min
[2023-01-18 23:44] LABS: Calcium* 8.3 mg/dL (8.4-10.6); Glucose* 121 mg/dL (60-115)
[2023-01-19 00:09] VITALS: BP 135/74; PULSE 80; RESP 20; TEMP 36.7; O2SAT 97
== END 2023-01-19 00:27 | disposition home or self-care (01) ==
PROVIDERS: Emergency Provider Emergency Medicine Emergency Medical Services; PCP Internal Medicine
DX: U07.1 COVID-19 (principal)
CPT/HCPCS: 36415; 80048; 81001; 85025; 87086; 87631; 99283; 99284

== ENCOUNTER 2023-07-13 17:03 | Outpatient (CLI) | payer MEDICARE, SELFPAY ==
--- OUTSIDE RECORDS SUMMARY | 2023-07-18 10:46 | XMS_ITS | Clinical Summary ---
Author Organization [facility] Address [address], [place] [address] Care Team Providers Care Bag Shop Worker Name Role Phone Unassigned, Provider Primary Care Provider Unava ilable Source Comments You are receiving this document as you are listed as the primary care provider,follow-up provider, or the patient has been referred to you for consultation.This is in compliance with the Medicare and[facility] EHR Incentive Program,which states Providers who transition their patient to another setting of careor provider of care or refers their patient to another provider of care shouldprovide summary care record for each transition of care or referral. [facility] Allergies No known active allergies Medications Medication Sig Dispensed Refills Start Date End Date Status unknown medication Indications: PN: 01/02/2006 Active unknown medication Indications: PN: 06/17/2010 Active Social History Tobacco Use Types Packs/Day Years Used Date Smoking Tobacco: Never Smokeless Tobacco: Never Alcohol Use Standard Drinks/Week Comments Yes 7 (1 standard drink = 0.6 oz pur e alcohol) Sex and Gender Information Value Date Recorded Sex Assigned at Not on file Gender Identity Not on file Sexual Orientation Not on file Last Filed Vital Signs Vital Sign Reading Time Taken Comments Blood Pressure 139/78 09/26/2017 11:35 AM CDT Pulse 59 09/26/2017 11:35 AM CDT Temperature - - Respiratory Rate - - Oxygen Saturation - - Inhaled Oxygen Concentration - - Weight 85.7 kg (189 lb) 09/07/2011 2:39 PM CDT Height 167.6 cm (5' 6) 09/07/2011 2:39 PM CDT Body Mass Index 30.51 09/07/2011 2:39 PM CDT Plan of Treatment Health Maintenance Due Date Last Done Comments Medicare Annual Wellness Visit 1935 Zoster/Shingles (1 of 2) 12/12/1985 Dexa 12/12/2000 COVID-19 Vaccine ( season) 2022 04/18/2020, 03/21/2020 Influenza (Season Ended) 2023 020, 11/15/2018, 11/28/2016, Additional history exists DTaP/Tdap/Td (2 - Tdap) 11/03/2024 11/03/2014, 11/15 HepA Aged Out 11/15/2006, 01/08/2003 No lo nger eligible based on patient's age to complete this topic Pneumococcal 65+ Yrs Completed 11/30/2017, 07/10/19 15 HepB Aged Out No longer eligi ble based on patient's age to complete this topic Hib Aged Out No longer eligi ble based on patient's age to complete this topic IPV (Polio) Aged Out No longer eligi ble based on patient's age to complete this topic MCV4 Aged Out No longer eligi ble based on patient's age to complete this topic Care Teams Bag Shop Worker Relationship Specialty Start Date End Date Unassigned, Provider [address] [place] [address] PCP - General 02/01/00
--- OUTSIDE RECORDS SUMMARY | 2023-07-18 10:46 | XMS_ITS | Clinical Summary ---
Author Organization [facility] Address [place], [place] [address] Care Team Providers Care Analysis Internship Name Role Phone Kayla Choudhary MD Primary Care Prov ider Allergies No known active allergies Medications No known medications Active Problems Problem Noted Date Diagnosed Date Esophageal reflux 10/15/2006 Immunizations Name Administration Dates Next Due Hepatitis A (Adult) 11/15/2006,01/08/2003 Influenza, IIV3 (Age >=3 years) 12/24/2007,12/26,01/03/2006 Pneumococcal Poly,23-Valent (Pneumovax) 01/09/20 03 Td (Age >=7 Years) 08/18/1997 Td, Preservative Free (age >= 7 Years) 7 Family History Medical History Relation Name Comments Good Health Daughter 3 Good Health Daughter 4 Heart Disease Father 49 Stroke Father 49 Diabetes Maternal Uncle juvenile onse t Cancer Mother pancreatic Relation Name Status Comments Daughter 1 Alive Daughter 2 Alive Daughter 3 Daughter 4 Father (Age 53) stroke Maternal Uncle Mother (Age 89) pancreatic ca Social History Tobacco Use Types Packs/Day Years Used Date Smoking Tobacco: Former Cigarettes 1 20 Comments:quit after smoking in college for 20yrs. ? 1970? Alcohol Use Standard Drinks/Week Comments Yes 5.8 (1 standard drink = 0.6 oz p ure alcohol) Sex and Gender Information Value Date Recorded Sex Assigned at Not on file Gender Identity Not on file Sexual Orientation Not on file Obstetrics History Para Term AB IAB SAB Ectopic Multiple Livin g Live Births 2 2 2 2 Date Outcome GA Total Labor Labor/2nd/3rd Weight Sex Delivery Anes PTL Qi A1 A5 Name Cl in Term Term Last Filed Vital Signs Vital Sign Reading Time Taken Comments Blood Pressure 118/66 07/14/2009 1:16 PM CDT Pulse 88 07/14/2009 1:16 PM CDT Temperature 37.1 ??C (98.7 ??F) 06/22/2009 4:40 PM CD T Respiratory Rate - - Oxygen Saturation - - Inhaled Oxygen Concentration - - Weight 87.2 kg (192 lb 4.8 oz) 06/22/2009 4:40 P M CDT Height 167.6 cm (5' 6) 05/04/2008 2:09 PM CDT Body Mass Index 31.04 05/04/2008 2:09 PM CDT Plan of Treatment Health Maintenance Due Date Last Done Comments Tdap 12/12/1946 Depression screening for age 12+ 1947 BMI (ht and wt on same day) for age 18+ 12/12/1953 Zoster (shingles) series for age 50+ (1 of 2) 12/12/1985 DEXA/DXA scan for age 65+ 12/12/2000 Pneumococcal series for age 65+ (2 of 2 - PCV) 01/09/2004 01/08/2003 Tetanus booster 11/15/2016 11/15/2006, 08/18/1997 COVID-19 vaccine series ( season) 2022 Influenza for age 65+ 10/28/2023 12/24/2007 , 12/26/2006, 01/03/2006 Care Teams Analysis Internship Relationship Specialty Start Date End Date Kayla Choudhary MD [address] [place] [address] PCP - General 01/03/06
== END 2023-07-13 17:04 | disposition home or self-care (01) ==
LOC: AMB 07-18 10:44
PROVIDERS: PCP Internal Medicine; Visit Provider Student in an Organized Health Care Education/Training Program
DX: R55 Syncope and collapse (principal)
CPT/HCPCS: A0998

== ENCOUNTER 2023-08-09 16:41 | Outpatient (CLI) | payer MEDICARE, SELFPAY ==
--- OUTSIDE RECORDS SUMMARY | 2023-08-10 18:04 | XMS_ITS | Clinical Summary ---
Author Organization [facility] Address [address], [place] [address] Care Team Providers Care Dressage Judge Name Role Phone Unassigned, Provider Primary Care Provider Unava ilable Source Comments You are receiving this document as you are listed as the primary care provider,follow-up provider, or the patient has been referred to you for consultation.This is in compliance with the Medicare and[facility] EHR Incentive Program,which states Providers who transition their patient to another setting of careor provider of care or refers their patient to another provider of care shouldprovide summary care record for each transition of care or referral. [facility] Allergies No known active allergies Medications Medication [...] age to complete this topic Care Teams Dressage Judge Relationship Specialty Start Date End Date Unassigned, Provider [address] [place] [address] PCP - General 02/01/00
--- OUTSIDE RECORDS SUMMARY | 2023-08-10 18:04 | XMS_ITS | Clinical Summary ---
Author Organization [id number] Address [place], [place] [address] Care Team Providers Care Engineering Geologist Name Role Phone Kayla Choudhary MD Primary [...] Outcome GA Total Labor Labor/2nd/3rd Weight Sex Type Anes PTL Qi A1 A5 Name Clin Term Term Last Filed Vital Signs Vital [...] booster 11/15/2016 11/15/2006, 08/18/1997 COVID-19 vaccine series (2022- season) 2022 Influenza for age 65+ 10/28/2023 12/24/2007 , 12/26/2006, 01/03/2006 Care Teams Engineering Geologist Relationship Specialty Start Date End Date Kayla Choudhary MD [address] [place] [address] PCP - General 01/03/06
== END 2023-08-09 16:42 | disposition home or self-care (01) ==
LOC: AMB 08-10 18:03
PROVIDERS: PCP Internal Medicine; Visit Provider Family Medicine
DX: R53.83 Other fatigue (principal)
CPT/HCPCS: A0998

== ENCOUNTER 2023-08-22 05:59 | Outpatient (CLI) | payer MEDICARE, SELFPAY ==
--- OUTSIDE RECORDS SUMMARY | 2023-08-26 07:22 | XMS_ITS | Clinical Summary ---
Author Organization [facility] Address [address] [address] Care Team Providers Care Front End Web Developer Name Role Phone Unassigned, Provider Primary Care Provider Unava ilable Source Comments You are receiving this document as you are listed as the primary care provider,follow-up provider, or the patient has been referred to you for consultation.This is in compliance with the Medicare and[facility] EHR Incentive Program,which states Providers who transition their patient to another setting of careor provider of care or refers their patient to another provider of care shouldprovide summary care record for each transition of care or referral. [facility] Allergies No known active allergies Medications Medication [...] age to complete this topic Care Teams Front End Web Developer Relationship Specialty Start Date End Date Unassigned, Provider [address] [place] [address] PCP - General 02/01/00
--- OUTSIDE RECORDS SUMMARY | 2023-08-26 07:22 | XMS_ITS | Clinical Summary ---
Author Organization [facility] Address [place], [place] [address] Care Team Providers Care Slurry Worker Name Role Phone Kayla Choudhary MD Primary [...] 10/28/2023 12/24/2007 , 12/26/2006, 01/03/2006 Care Teams Slurry Worker Relationship Specialty Start Date End Date Kayla Choudhary MD [address] [place] [address] PCP - General 01/03/06
== END 2023-08-22 06:00 | disposition home or self-care (01) ==
LOC: AMB 08-26 07:21
PROVIDERS: PCP Internal Medicine; Visit Provider Family Medicine
DX: R53.1 Weakness (principal)
CPT/HCPCS: A0998

== ENCOUNTER 2024-03-12 00:14 | Outpatient (CLI) | payer MEDICARE, SELFPAY | END 2024-03-12 00:15 | disposition home or self-care (01) | LOC: AMB 03-26 17:48 | PROVIDERS: PCP Internal Medicine; Visit Provider Family Medicine | DX: M25.552 Pain in left hip (principal) | CPT/HCPCS: A0425; A0433 ==

== ENCOUNTER 2024-03-12 00:42 | Inpatient (IN) | payer MEDICARE, SELFPAY ==
[2024-03-12] VITALS (18 sets, daily range): BP systolic 110–186; BP diastolic 61–101; PULSE 79–111; RESP 16–20; TEMP 36.2–37.4; O2SAT 91–97; BMI 31.4
--- OUTSIDE RECORDS SUMMARY | 2024-03-12 00:44 | XMS_ITS | Clinical Summary ---
Author Organization [facility] Address [address], [place] [address] Care Team Providers Care Ferryboat Operator Name Role Phone Unassigned, Provider Primary Care Provider Unava ilable Source Comments You are receiving this document as you are listed as the primary care provider,follow-up provider, or the patient has been referred to you for consultation.This is in compliance with the Medicare and[facility] EHR Incentive Program,which states Providers who transition their patient to another setting of careor provider of care or refers their patient to another provider of care shouldprovide summary care record for each transition of care or referral. [facility] Allergies No known active allergies Medications Medication [...] Zoster/Shingles (1 of 2) 12/12/1985 Dexa 12/12/2000 RSV (1 - 1-dose 75+ series) 12/12/2010 COVID-19 Vaccine (3 - season) 2023 04/18/2020, 03/21/2020 Influenza (#1) 2023 10/28/2019, 10/28, 11/28/2016, Additional history exists DTaP/Tdap/Td (2 - [...] age to complete this topic Care Teams Ferryboat Operator Relationship Specialty Start Date End Date Unassigned, Provider [address] [place] [address] PCP - General 02/01/00
--- OUTSIDE RECORDS SUMMARY | 2024-03-12 00:44 | XMS_ITS | Continuity of Care Document ---
Author Name NwHIN User Aurale[place]-a llowed Address Unknown Organization Unknown Address Unknown Procedures FILTER APPLIED:Only known Procedures with Onset Date within the last 5 years Procedure Date Procedure Provider Additiona l Information Status RESP VIRUS 3-5 TARGETS (94372) Completed EMERGENCY DEPT VISIT LOW MDM (27407) Completed URINE CULTURE/COLONY COUNT (18132) Completed COMPLETE CBC W/AUTO DIFF WBC (72967) Completed URINALYSIS AUTO W/SCOPE (01246) Completed METABOLIC PANEL TOTAL CA (81845) Completed ROUTINE VENIPUNCTURE (50136) Completed EMERGENCY DEPT VISIT MOD MDM (31446) Completed URINALYSIS AUTO W/SCOPE (01636) Completed PT EVAL LOW COMPLEX 20 MIN (32392) Completed URINE CULTURE/COLONY COUNT (30546) Completed EMERGENCY DEPT VISIT HI MDM (57822) Completed HYDRATION IV INFUSION INIT (15681) Completed HYDRATE IV INFUSION ADD-ON (27563) Completed RESP VIRUS 3-5 TARGETS (76193) Completed CT HEAD/BRAIN W/O DYE (74399) Completed ROUTINE VENIPUNCTURE (63122) Completed COMPLETE CBC W/AUTO DIFF WBC (82147) Completed ASSAY OF TROPONIN QUANT (63711) Completed ASSAY OF LACTIC ACID (98068) Completed METABOLIC PANEL TOTAL CA (14192) Completed ELECTROCARDIOGRAM TRACING (48682) Completed Encounters FILTER APPLIED:Only known Encounters with Admission Date within the last 5 years Encounter Location Admission Discharge Billing Code Life Science Taxonomist Yulissa lucero Outpatient Erasmo Curry Outpatient Erasmo Curry Unknown [id number] Marielenadano Fletcherson Outpatient Babar Rojas Outpatient [facility] Emergency Major Rojas
--- NOTE | 2024-03-12 01:13 | CRLHL7_ITS ---
For Patients: As a result of the Century Cures Act, medical imaging exams and procedure reports are released immediately into your electronic medical record. You may view this report before your referring provider. If you have questions, please contact your health care provider. Indication: Left leg pain. Suspect lumbar radiculopathy. Technique: Three views of the lumbar spine. Comparison: None. Findings: No acute fracture or suspicious osseous lesion. The lumbar vertebral bodies grossly maintained normal heights with slight straightening of the lumbar lordosis. There is biconvex thoracolumbar curvature. Advanced multilevel spondylosis is noted with prominent endplate osteophytes. Multilevel degenerative disc disease with multifocal disc space height loss. Vascular calcifications are present. Moderate rectal stool burden. Impression: No acute osseous abnormality appreciated. Advanced multilevel lumbar spondylosis and degenerative disc disease. Dictated by Farrukh Diego MD @ 03/12/2024 1:57:00 AM (Electronically Signed)
--- NOTE | 2024-03-12 01:13 | CRLHL7_ITS ---
For Patients: As a result of the Cures Act, medical imaging exams and procedure reports are released immediately into your electronic medical record. You may view this report before your referring provider. If you have questions, please contact your health care provider. Indication: Hip pain. Technique: Pelvis and left hip 3 views. Comparison: None. Findings: Bones: Diffuse demineralization of the visualized bones. No acute fractures or dislocations identified.. Joint spaces: [id number] degenerative changes of the bilateral hips and SI joints.. Soft tissues: Unremarkable. Impression: No acute fractures or dislocations. Degenerative changes.. Dictated by Chi Garcia MD @ 03/12/2024 1:54:42 AM (Electronically Signed)
--- NOTE | 2024-03-12 01:34 | ED_ITS ---
HPI - Extremity Injury (Lower) General Chief Complaint: Extremity Pain/Injury, Lower Stated Complaint: Hip pain Time Seen by Provider: 03/12/24 00:51 History of Present Illness HPI Narrative: 88-year-old female presents the emergency department via EMS from [facility]. Reports no trauma or injury but states that she has had 2-3 days of this vagal left leg pain. Denies fall, denies previous arthritis. She also tells me that she does not have any long-term medical problems or take any prescription medications. I do see prescriptions for furosemide and eyedrops in her chart, but it looks like the furosemide is p.r.n. and she tells me that she is allergic to the eyedrops. Denies any prior history of arthritis in the hip, fractures of the pelvis, denies any back pain or history of radiculopathy. Has not tried any interventions at home to help with her pain but EMS did administer fentanyl, ketamine and Zofran prior to ED arrival. She tells me that she can not move the leg but she is clearly moving the leg and bending on exam. No prior history of similar visits to the ED. points all along the outer and then anterior hip as the area of pain but does not localize it. Says that it hurts to move but clearly bends it for me on exam. As I move on to exam, it is clear that she prefers the hip in a flexed position. Unfortunately the history is just really vague. Reports that her past medical history is benign. No long-term major medical problems, no underlying osteoarthritis of the hip, pelvis or back. ROS is notable for the left hip pain, denies any other pain times 12 systems. Related Data Home Medications ?Medication ?Instructions ?Recorded ?Confirmed dorzolamide 22.3 mg-timolol 6.8 1 drp ophthalmic (eye) BID 12/15/22 08/22/23 mg/mL eye drops latanoprost 0.005 % eye drops 1 drp ophthalmic (eye) HS 12/15/22 08/22/23 ibuprofen 200 mg tablet 200 mg PO Q6H PRN 08/10/23 08/22/23 Previous Rx's ?Medication ?Instructions ?Recorded furosemide 20 mg tablet (Lasix) 20 mg PO QAM PRN edema #30 tabs 08/22/23 cyclobenzaprine 5 mg tablet 5 - 10 mg (1 - 2 x 5 mg) PO QHS 03/12/24 PRN muscle spasm #20 tabs meloxicam 7.5 mg tablet 7.5 mg PO DAILY #90 tabs 03/12/24 prednisone 20 mg tablet 20 mg PO DAILY 3 days #3 tabs 03/12/24 Allergies Allergy/AdvReac Type Severity Reaction Status Date / Time No Known Allergies All[facility] Verified 08/22[facility]23 16:[facility] Medical History Edema ?R60.9 - Edema, unspecified (ICD-10) Glaucoma ?H40.9 - Unspecified glaucoma (ICD-10) 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) ?Q62.39 - Other obstructive defects of renal pelvis and ureter (ICD-10) Frailty syndrome in geriatric patient ?R54 - Age-related physical debility (ICD-10) Osteoarthritis of right hip ?M16.11 - Unilateral primary osteoarthritis, right hip (ICD-10) Surgical History Status post arthroscopic surgery of right knee (06/06/10) ?Z98.890 - Other specified postprocedural states (ICD-10) History of tonsillectomy (06/06/10) ?Z90.89 - Acquired absence of other organs (ICD-10) History of laparoscopic cholecystectomy (12/03/14) ?Z90.49 - Acquired absence of other specified parts of digestive tract (ICD- 10) History of section ?Z98.891 - History of uterine scar from previous surgery (ICD-10) History of blepharoplasty (2004) ?Z98.890 - Other specified postprocedural states (ICD-10) History of bilateral cataract extraction (2019) ?Z98.41 - Cataract extraction status, right eye (ICD-10) ?Z98.42 - Cataract extraction status, left eye (ICD-10) History of appendectomy (194) ?Z90.49 - Acquired absence of other specified parts of digestive tract (ICD- 10) Social History Narrative: Lives with José Miguel in [facility]. Daughter Diana is DOC. 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 She is a nonsmoker, no ETOH use. Requests Full Code status at this time. What is your current living situation?: I presently have a place to live Problems where you live: no known problems Problems where you live details: na In the past 12 months, utilities in danger of being shut off: no In past 12 months, lack of transportation kept you from medical appts, meetings, work, or getting things needed for daily living: no In the past 12 mos, have been you worried that your food would run out before you had money to buy more?: never true In the past 12 mos, the food you bought just didn't last and you didn't have money to buy more?: never true Highest level of school completed/degree received: Associate degree: academic program Smoking Status: Former smoker Second hand tobacco smoke exposure: No How often do you have a drink containing alcohol: 2-3 times a week Alcohol type: wine AUDIT-C Alcohol total score: 3 Non-prescribed substance use: denies use Caffeine: Yes (1 cup) How often does anyone, including family, friends and others, physically hurt you : never How often does anyone, including family, friends and others, insult or talk down to you: never How often does anyone, including family, friends and others, threaten you with harm: never How often does anyone, including family, friends and others, scream or curse at you: never service: No Exam Const: Vital Signs, click to edit/add: Vital Signs - 24 hr 03/12/24 00:45 03/12/24 01:36 Temperature 97.1 F L 97.1 F L Pulse Rate [Right Pulse Oximeter] 82 Respiratory Rate 16 Blood Pressure [Le ft Upper Arm] 186/101 H Pulse Oximetry 93 Oxygen Delivery Me thod Room Air Documenting provider has reviewed patient's vital signs: yes Common normals: no apparent distress General appearance: well kempt Other: See to be a good historian, just very vague in her description of the hip. No obvious signs of recent injury or trauma. Very clean and well kept. Makes good eye contact. HENMT: Common normals: normocephalic, head/scalp atraumatic and moist oral mucous membranes Head and scalp: normocephalic and atraumatic Mouth: oral and palatal mucosa normal Eye: Common normals: conjunctivae normal General eye: normal appearance of both eyes Conjunctiva: conjunctiva(e) normal Neck & C-Spine: General: normal visual inspection Resp: Common normals: normal respiratory effort, no use of accessory muscles and clear to auscultation bilaterally Effort & inspection: able to speak in complete sentences Auscultation: clear to auscultation bilaterally Cardio: Common normals: regular rate, regular rhythm, S1 normal heart sound and S2 normal heart sound Rate: regular rate Rhythm: regular rhythm Heart sounds: S1 normal and S2 normal Extremity: Common normals: normal to inspection, full ROM, normal capillary refill and no pedal edema Other: Right hip with normal range of motion, no tenderness or deformity. Left knee with no point bony tenderness. Some mild joint enlargement consistent with osteoarthritis but there is no effusion or restricted range of motion. Left hip with normal range of motion, does not cry out in pain to palpation of any portion or internal or external rotation. No real resistance to movement. No deformity. Lower back with no obvious deformity. No point bony tenderness. No worsening of pain with position change. No tenderness to SI joint. Normal dorsalis pedis pulses bilaterally with normal capillary refill and warmth in the toes. Neuro: Motor exam: strength 5/5 throughout Psych: Appearance: well kempt Attitude: engaged Skin: Common normals: no rashes or lesions noted General skin exam: no rashes or lesions noted Course Course ED Course: 80-year-old female with reported lateral left hip pain with no history of trauma or injury. Differential diagnosis including osteoarthritis, occult fracture, hip bursitis, referred pain with radiculopathy, shingles though unlikely because of no skin changes, amongst many others. Will obtain x-rays of the hip and lower back. Give Toradol 30 mg IM x1 and cord a mg of lorazepam. Has already received ketamine and fentanyl from EMS. Would prefer not to use narcotics. await findings. Reevaluation(s) Time of Reevaluation #1: 02:05 Reevaluation #1: X-ray findings are back, reviewed with patient. My interpretation of arthritis is consistent with radiology findings. No signs of occult fracture. Patient was asleep when I went in to check on her. That is pretty good sign. Will start on prednisone 40 mg p.o. x1 and continue on 20 mg once daily for 3 days. She denies a history of GI bleed so I will start her on meloxicam 7.5 mg p.o. daily as I do suspect this is going to be an ongoing problem. 5 mg of Flexeril at bedtime only. Very limited supply of these, counseled to use sparingly and discontinue of too much sedation. I do not think she is a good candidate to have narcotics at home. I would like for her to call make a follow-up appoint with her primary care doctor in a week to see how things are going. Consider ortho referral for injection or more advanced management if needed. Alarm symptoms reviewed that would warrant ED presentation. Patient verbalizes understanding and agreement. Vital Signs Vital signs: Initial Vital Signs Temperature 97.1 F L 03/12/24 00:45 Temperature Source Temporal Artery Scan 03/12/24 00:45 Pulse Rate 82 03/12/24 00:45 Respiratory Rate 16 03/12/24 00:45 Blood Pressure 186/101 H 03/12/24 00:45 Blood Pressure Mean 129 H 03/12/24 00:45 Blood Pressure Position Supine 03/12/24 00:45 Pulse Oximetry 93 03/12/24 00:45 Oxygen Delivery Method Room Air 03/12/24 00:45 Vital Signs Temperature 97.1 F L 03/12/24 00:45 Pulse Rate 82 03/12/24 00:45 Respiratory Rate 16 03/12/24 00:45 Blood Pressure 186/101 H 03/12/24 00:45 Pulse Oximetry 93 03/12/24 00:45 Oxygen Delivery Method Room Air 03/12/24 00:45 Temperature 97.1 F L 03/12/24 01:36 Pulse Rate 82 03/12/24 00:45 Respiratory Rate 16 03/12/24 00:45 Blood Pressure 186/101 H 03/12/24 00:45 Pulse Oximetry 93 03/12/24 00:45 Oxygen Delivery Method Room Air 03/12/24 00:45 Medications Administered Medications: Generic Name Dose Route Start Last Admin Trade Name Freq PRN Reason Stop Dose Admin Ketorolac Tromethamine 30 mg 03/12/24 01:13 03/12/24 01:36 Ketorolac 30 Mg/Ml Inj IM 03/12/24 01:14 30 mg ONCE ONE Administration Lorazepam 0.25 mg 03/12/24 01:34 03/12/24 01:37 Lorazepam 2 Mg/Ml Inj IM 03/12/24 01:35 0.25 mg ONCE ONE Administration MDM - Extremity Injury (Lower) Imaging Data Left hip x-ray: Attestation: I have reviewed the pertinent imaging results. My impression: Osteoarthritic changes but no signs of occult fracture. Radiologist's impression: Impression: No acute fractures or dislocations. Degenerative changes.. Dictated by Chi Garcia MD @ 03/12/2024 1:54:42 AM Lumbar spine x-ray: Attestation: I have reviewed the pertinent imaging results. My impression: Degenerative changes but no signs of acute fracture, misalignment or significant lumbar compression fracture Radiologist's impression: Impression: No acute osseous abnormality appreciated. Advanced multilevel lumbar spondylosis and degenerative disc disease. Dictated by Farrukh Diego MD @ 03/12/2024 1:57:00 AM (Electronic Signature) Discharge Plan Discharge Clinical Impression: Osteoarthritis of left hip Patient Disposition: Home w/ Parent or Adult Condition: Improved Instructions: Osteoarthritis (DC) Additional Instructions: I am glad that the pain is doing somewhat better after the medications given in the emergency department. As we discussed, there are no signs of hidden fracture or major problems with the hip, leg or lower back. You do have a moderate amount of arthritis which certainly would explain your symptoms. Sometimes these areas get more inflamed and hurt quite a bit more even though the arthritis does take years to develop. I have started you on a course of prednisone, a common anti-inflammatory medication. The dose that your given here in the emergency department will count as your Sunday morning dose. You will continue taking this once daily for 3 more days. Your next dose of that medication to take at home will be on morning. I have also started you on meloxicam, a common anti-inflammatory medication. This I suspect will be more long-term for you. You will take this instead of ibuprofen or Aleve. Would like for you to plan to take this in the evenings, preferably with food. You may also use Tylenol 1000 mg 3 times daily for pain. I would recommend that you use that at least morning and bedtime, but you may dose mid day if needed as well. I have also given a prescription for Flexeril, and muscle relaxant that causes some drowsiness and may help you sleep. Try to use only 1 tablet, consider decreasing to a half of a tablet if it causes too much sedation. Use this only if the pain is very bothersome and you cannot sleep and have exhausted your other options with the Tylenol and meloxicam. Please call your primary care provider's office to get an appointment for next week. That will check into how things are going and determine if you need further follow-up with an orthopedic provider to discuss injection or other intervention. You should come to emergency department if you have a fall and are unable to bear weight, have high fever or other signs of significant complication. Typically joint pain that is not related to a new severe injury can be managed at home. Use your walker if needed to help you get around. Activity Level: Activity as Tolerated Discharge Diet: Regular Prescriptions: New meloxicam 7.5 mg tablet 7.5 mg PO DAILY Qty: 90 1RF prednisone 20 mg tablet 20 mg PO DAILY 3 Days Qty: 3 0RF cyclobenzaprine 5 mg tablet 5 - 10 mg PO QHS PRN (Reason: muscle spasm) Qty: 20 1RF Rx Instructions: May cause drowsiness, use sparingly and consider half tablet if too sedating No Action ibuprofen 200 mg tablet 200 mg PO Q6H PRN furosemide [Lasix] 20 mg tablet 20 mg PO QAM PRN (Reason: edema) Qty: 30 0RF latanoprost 0.005 % drops 1 drp ophthalmic (eye) HS dorzolamide-timolol 22.3-6.8 mg/mL drops 1 drp ophthalmic (eye) BID Follow Up/Referrals: Ed De La Rosa MD [Primary Care Provider] - 7 Days (Recheck hip pain, refer to orthopedics for injection or more advanced therapy if not improving) Stand Alone Forms: [employer] Info Instructions
[2024-03-12] MEDS: KETOROLAC 30 MG/ML inj IM (01:36)
[2024-03-12] MEDS: LORazepam 2 MG/ML inj 0.25 MG IM (01:37)
[2024-03-12] MEDS: OXYCODONE 5 MG TABLET PO ×3 (01:45→22:35)
--- OUTSIDE RECORDS SUMMARY | 2024-03-12 01:55 | XMS_ITS | Clinical Summary ---
Author Organization [facility] Address [address], [place] [address] Care Team Providers Care Mat Repairer Name Role Phone Unassigned, Provider Primary Care Provider Unava ilable Source Comments You are receiving this document as you are listed as the primary care provider,follow-up provider, or the patient has been referred to you for consultation.This is in compliance with the Medicare and[facility] EHR Incentive Program,which states Providers who transition their patient to another setting of careor provider of care or refers their patient to another provider of care shouldprovide summary care record for each transition of care or referral. [facility] Allergies No known active allergies Medications Medication [...] age to complete this topic Care Teams Mat Repairer Relationship Specialty Start Date End Date Unassigned, Provider [address] [place] [address] PCP - General 02/01/00
--- OUTSIDE RECORDS SUMMARY | 2024-03-12 01:55 | XMS_ITS | Continuity of Care Document ---
Author Name NwHIN User AuraleMN-a llowed Address Unknown Organization Unknown Address Unknown Procedures FILTER APPLIED:Only known Procedures with Onset Date within the last 5 years Procedure Date Procedure Provider Additiona l Information Status RESP VIRUS 3-5 TARGETS (53556) Completed EMERGENCY DEPT VISIT LOW MDM (77266) Completed URINE CULTURE/COLONY COUNT (28935) Completed COMPLETE CBC W/AUTO DIFF WBC (50607) Completed URINALYSIS AUTO W/SCOPE (71289) Completed METABOLIC PANEL TOTAL CA (18036) Completed ROUTINE VENIPUNCTURE (67106) Completed EMERGENCY DEPT VISIT MOD MDM (16252) Completed URINALYSIS AUTO W/SCOPE (55736) Completed PT EVAL LOW COMPLEX 20 MIN (00036) Completed URINE CULTURE/COLONY COUNT (12422) Completed EMERGENCY DEPT VISIT HI MDM (87502) Completed HYDRATION IV INFUSION INIT (47402) Completed HYDRATE IV INFUSION ADD-ON (68577) Completed RESP VIRUS 3-5 TARGETS (21138) Completed CT HEAD/BRAIN W/O DYE (98730) Completed ROUTINE VENIPUNCTURE (14908) Completed COMPLETE CBC W/AUTO DIFF WBC (25680) Completed ASSAY OF TROPONIN QUANT (59252) Completed ASSAY OF LACTIC ACID (98003) Completed METABOLIC PANEL TOTAL CA (68569) Completed ELECTROCARDIOGRAM TRACING (53563) Completed Encounters FILTER APPLIED:Only known Encounters with Admission Date within the last 5 years Encounter Location Admission Discharge Billing Code Pure Culture Operator Yulissa lucero Outpatient Erasmo Curry Outpatient Erasmo Curry Unknown [id number] Marielenadano Fletcherson Outpatient Babar Rojas Outpatient [facility] Major Rojas
[2024-03-12] MEDS: predniSONE 20 MG TABLET 40 MG PO (01:56)
--- NOTE | 2024-03-12 09:23 | CRLHL7_ITS ---
For Patients: As a result of the Century Cures Act, medical imaging exams and procedure reports are released immediately into your electronic medical record. You may view this report before your referring provider. If you have questions, please contact your health care provider. EXAM: CT OF THE PELVIS, WITH IV CONTRAST CLINICAL INDICATION: Left anterior hip pain. Cannot lift left leg. COMPARISON STUDIES: 04/26/2014 CT abdomen and pelvis. TECHNICAL: Enhanced CT of the pelvis with axial images. Sagittal oblique and coronal oblique reformatted images were created. Contrast: Isovue 370, 91 mL IV. FINDINGS: OSSEOUS STRUCTURES: Osteopenia. No fractures are evident. No evidence for chronic avascular necrosis. JOINT SPACES: Right Hip: No effusion. Ynlv-on-lrokiile narrowing and hypertrophic changes. Small amount of subchondral cystic change. Left Hip: No effusion. Mild narrowing and hypertrophic change. Small amount of subchondral cystic change. SI Joints: Moderate degenerative changes bilaterally. No ankylosis. Lumbar Spine: Degenerative changes in the lower lumbar interspaces and lumbosacral facets. MUSCLES AND TENDONS: There is a focal partially visualized area of increased density in the left psoas musculature that measures up to 1.3 cm in size consistent with a small hematoma. Diffuse enlargement of the left psoas musculature and left iliacus musculature with adjacent edema. The remaining muscles are unremarkable. No retracted tendon tear. SOFT TISSUES: No subcutaneous edema, fluid collection or hematoma. INTRAPELVIC CONTENTS: No free fluid or hematoma. Partially visualized rotated right kidney with enlarged collecting system. Findings are stable. Stable uterine morphology. NEUROVASCULAR STRUCTURES: No abnormality of the neurovascular structures. IMPRESSION: 1. Partially visualized acute hemorrhage in the left psoas musculature with edema in the left psoas and iliacus musculature. 2. Degenerative changes in the hips, SI joints and lumbar spine. 3. Osteopenia. 4. Partial visualization of the rotated right kidney with a large collecting system. Please note that all CT scans at this facility use dose modulation, iterative reconstruction, and/or weight-based dosing when appropriate to reduce radiation dose to as low as reasonably achievable. Dictated by Kunal Gonzales MD @ 03/12/2024 11:56:16 AM (Electronically Signed)
[2024-03-12 10:16] LABS: Creatinine, Point-of-Care* 1.2 mg/dl (0.6-1.3)
[2024-03-12] MEDS: MORPHINE 4 MG/ML INJ IVP (10:50)
[2024-03-12] MEDS: LORazepam 2 MG/ML inj 0.5 MG IVP (11:05)
[2024-03-12] MEDS: ACETAMINOPHEN 500 MG TABLET 1000 MG PO (13:13)
--- NOTE | 2024-03-12 13:20 | ED.NURSE ---
Pt was set to discharge, until pt daughter came here to pick her up. Plan at time of discharge was to see if pt could ambulate with a walker, independently, with minimal pain. While waiting for the daughter, pt was resting in a recliner, no vitals were obtained until after the daughter arrived. CT scan was ordered for the pt as she continued to have pain, and further medication was ordered for this. The pt was sent to CT, during her CT scan she required more pain medications. After she got back from CT, the pt was put on the monitor for oxygen, pulse monitoring, and blood pressures. Pt was not scanned into [employer] monitoring for vital signs to be loaded. The pt pulse ranged from 90s- low 100s after her CT scan, oxygen levels after pain medication was 89%, oxygen applied, 2L. The pt maintained around 95% after this. Blood pressures were approximately 140s systolic, 90s, diastolic. The pt described some pain relief after morphine and lorazepam were given, about a 4/10 afterwards.
[2024-03-12] MEDS: LIDOCAINE 5% PATCH 1 PATCH TRANSDERMA ×2 (14:13→14:58)
--- NOTE | 2024-03-12 14:20 | PM.IMHP1 ---
Hospitalist- H&P: HPI History of Present Illness Date Seen: 03/12/24 Chief complaint: Hip pain Narrative: ADMISSION HISTORY AND PHYSICAL - HOSPITALIST Chief Complaint: 7-10 days of dull back and hip pain alternating with more excruciating pain. HPI: Varying history with this patient. I re-referred the ER note and it states that she has only had 2-3 days of vague left leg pain without injury. And that she had not used any interventions at home. However when I speak with her she says the pain is been there for 10 days and she has been using Advil and Tylenol. She did not report any injury to me or the ER. She is not on anticoagulants. Workup in the ER shows a pelvic CT that reveals a focal partially visualized 1.3 cm hematoma in the psoas musculature. Diffuse enlargement of felt left psoas and left iliacus musculature with edema also noted. No retracted tendon tear. ER COURSE: Hours of observation with pain management failing. Ultimately she needed to be admitted for acute therapies and pain management. CODE STATUS: Full code EMERGENCY CONTACT PLAN: Mazin Mitali Rel To Pat Daughter Cell I've updated the PFSH, medications and allergies in the Expanse tabs. INVESTIGATIONS: LABS/MICRO/ECG/IMAGING No labs have been obtained as she has had multiple trials. There is a small IV in place and were trying to give her a bolus at the time of this dictation. She is tachycardic. Pelvic CT 1. Partially visualized acute hemorrhage in the left psoas musculature with edema in the left psoas and iliacus musculature. 2. Degenerative changes in the hips, SI joints and lumbar spine. 3. Osteopenia. 4. Partial visualization of the rotated right kidney with a large collecting system. REVIEW OF SYSTEMS: 12-point ROS completed with patient and negative unless otherwise stated in HPI or below. PHYSICAL EXAM: CONSTITUTIONAL: Conversive, appears to be a good historian. Daughter is there and vacs up most of what she tells me. A/O. Knows setting and context. GENERAL: Well-developed and above ideal body weight, in no respiratory distress. VITAL SIGNS: see record. HEENT: Sclerae are anicteric. No petechiae. CARDIAC: rhythm is regular. There is no S3 or rub. No harsh murmurs. Extremities show trace edema with symmetrical pulses. PULM: good air entry with no wheeze. NEURO: Speech is fluent. A brief neurologic exam is negative. ext - tender along the paraspinal and upper left iliac crest of her left hip SKIN: No rashes, petechiae, concerning changes PSYCHIATRIC: Euthymic. ADMIT TO MEDSURG: FLOOR CARE DVT: SCDs, holding any Lovenox because of her bleed. GI: PO intake Time spent: Today I spent 75 minutes seeing the patient, discussing the patient with ER staff, reviewing Expanse and EPIC notes/diagnostics, discussing the care plan with our care time that includes social work, PT/OT, pharmacy, RT, retirement and documenting my impressions and plan in the medical record. 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) ?Q62.39 - Other obstructive defects of renal pelvis and ureter (ICD-10) Frailty syndrome in geriatric patient ?R54 - Age-related physical debility (ICD-10) Osteoarthritis of right hip ?M16.11 - Unilateral primary osteoarthritis, right hip (ICD-10) Surgical History Status post arthroscopic surgery of right knee (06/06/10) ?Z98.890 - Other specified postprocedural states (ICD-10) History of tonsillectomy (06/06/10) ?Z90.89 - Acquired absence of other organs (ICD-10) History of laparoscopic cholecystectomy (12/03/14) ?Z90.49 - Acquired absence of other specified parts of digestive tract (ICD-10) History of section ?Z98.891 - History of uterine scar from previous surgery (ICD-10) History of blepharoplasty (2004) ?Z98.890 - Other specified postprocedural states (ICD-10) History of bilateral cataract extraction (2019) ?Z98.41 - Cataract extraction status, right eye (ICD-10) ?Z98.42 - Cataract extraction status, left eye (ICD-10) History of appendectomy (1942) ?Z90.49 - Acquired absence of other specified parts of digestive tract (ICD-10) Social History (Updated 03/12/24 @ 16:54 by Beth Geiger MD) Narrative: Lives alone with her dog; in 10/19. [facility]. Daughter Diana is POA. 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 She is a nonsmoker, no ETOH use. Requests Full Code status at this time. What is your current living situation?: I presently have a place to live Problems where you live: no known problems Problems where you live details: none In the past 12 months, utilities in danger of being shut off: no In past 12 months, lack of transportation kept you from medical appts, meetings, work, or getting things needed for daily living: no In the past 12 mos, have been you worried that your food would run out before you had money to buy more?: never true In the past 12 mos, the food you bought just didn't last and you didn't have money to buy more?: never true Highest level of school completed/degree received: Bachelor's degree Smoking Status: Former smoker Do you use any of these nicotine containing products: None Second hand tobacco smoke exposure: No How often do you have a drink containing alcohol: never AUDIT-C Alcohol total score: 0 Non-prescribed substance use: denies use Caffeine: Yes How often does anyone, including family, friends and others, physically hurt you: never How often does anyone, including family, friends and others, insult or talk down to you: never How often does anyone, including family, friends and others, threaten you with harm: never How often does anyone, including family, friends and others, scream or curse at you: never service: No Meds Home Medications and Allergies Home Medications ?Medication ?Instructions ?Recorded ?Confirmed ?Type dorzolamide 22.3 mg-timolol 6.8 1 drp ophthalmic (eye) BID 12/15/22 03/12/24 History mg/mL eye drops latanoprost 0.005 % eye drops 1 drp ophthalmic (eye) HS 12/15/22 08/22/23 History Allergies Allergy/AdvReac Type Severity Reaction Status Date / Time No Known Allergies Allergy Verified 08/22/23 16:09 Exam Const: Vital Signs, click to edit/add: Vital Signs - 24 hr 03/12/24 00:45 03/12/24 01:00 03/12/24 01:36 Temperature 97.1 F L 97.1 F L Pulse Rate Pulse Rate [Left R adial] Pulse Rate [Right Pulse Oximeter] 82 79 Respiratory Rate 16 16 Blood Pressure Blood Pressure [Le ft Arm] Blood Pressure [Le ft Upper Arm] 186/101 H 166/78 H Pulse Oximetry 93 97 Oxygen Delivery Me thod Room Air Room Air Oxygen Flow Rate 03/12/24 01:55 03/12/24 02:00 03/12/24 12:07 Temperature Pulse Rate 93 Pulse Rate [Left R adial] Pulse Rate [Right Pulse Oximeter] 86 84 Respiratory Rate 16 16 Blood Pressure Blood Pressure [Le ft Arm] Blood Pressure [Le ft Upper Arm] 138/84 143/74 H Pulse Oximetry 93 91 95 Oxygen Delivery Me thod Room Air Room Air Nasal Cannula Oxygen Flow Rate 2 03/12/24 12:15 03/12/24 12:30 03/12/24 12:31 Temperature Pulse Rate 88 88 88 Pulse Rate [Left R adial] Pulse Rate [Right Pulse Oximeter] Respiratory Rate 18 Blood Pressure 110/61 Blood Pressure [Le ft Arm] Blood Pressure [Le ft Upper Arm] Pulse Oximetry 95 97 97 Oxygen Delivery Me thod Nasal Cannula Nasal Cannula Nasal Cannula Oxygen Flow Rate 2 2 2 03/12/24 12:49 03/12/24 13:00 03/12/24 13:19 Temperature Pulse Rate 108 H 104 H Pulse Rate [Left R adial] Pulse Rate [Right Pulse Oximeter] 101 H Respiratory Rate 20 Blood Pressure Blood Pressure [Le ft Arm] Blood Pressure [Le ft Upper Arm] 163/66 H Pulse Oximetry 95 96 94 Oxygen Delivery Me thod Nasal Cannula Nasal Cannula Room Air Oxygen Flow Rate 2 2 03/12/24 13:31 Temperature 99.3 F Pulse Rate Pulse Rate [Left R adial] 111 H Pulse Rate [Right Pulse Oximeter] Respiratory Rate 20 Blood Pressure Blood Pressure [Le ft Arm] 138/64 Blood Pressure [Le ft Upper Arm] Pulse Oximetry 93 Oxygen Delivery Me thod Room Air Oxygen Flow Rate Assessment and Plan Assessment and plan (1) Nontraumatic psoas hematoma: Problem comment: -attempting to get hemoglobin to assess any loss of blood that would be clinically significant -pain management, PT and OT referrals are necessary -consider left hip MRI for further characterization of this hematoma and edema Status: Deleted (2) Acute pain of left hip: Problem comment: As above PT/OT, TCU rehab needed decrease opioid use with scheduled tylenol and celebrex Status: Acute (3) Osteoarthritis of left hip: Problem comment: Contributing to her pain Status: Acute
[2024-03-12] MEDS: MORPHINE 2 MG/ML inj IVP ×4 (14:53→19:40)
[2024-03-12 16:30] LABS: Appearance Urine Clear (Clear); Bilirubin Urine Negative (Negative); Blood Urine Negative (Negative); Color Urine Yellow (Yellow); Glucose Urine Negative (Negative); Ketones Urine Trace (Negative); Leukocyte Esterase Urine Negative (Negative); Nitrite Urine Negative (Negative); Protein Urine Negative (Negative); Specific Gravity Urine 1.015 (1.000-1.030); Urobilinogen Urine 0.2 (0.2-1.0)
[2024-03-12 17:27] LABS: HCO3 VBG 24 mmol/L (21-28); Hematocrit 38.2 % (33.0-51.0); Hemoglobin* 12.4 gm/dL (12.0-16.0); Immature Granulocytes Pct Auto 0.2 %; Ionized Calcium* 1.12 mmol/L (1.11-1.30); Lymphocytes Percent Auto 5.2 % (20-44); Mean Corpuscular HGB Conc 33 gm/dL (32-36); Mean Corpuscular Hemoglobin 30 pg (26-34); Mean Corpuscular Volume 92 fL (80-100); Monocytes Percent Auto 3.8 % (0.0-11.0); Neutrophils Percent Auto 90.8 % (42.0-72.0); PCO2 VBG 43 mmHG (40-50); PO2 VBG 38.6 mmHG (25-47); Platelet Count* 294 K/uL (140-440); RDW Coefficient of Variation % 13.9 % (11.5-15.5); Red Blood Count 4.17 m/uL (4.00-5.20); White Blood Count* 11.49 K/uL (4.50-11.00); pH VBG 7.355 (7.32-7.43)
[2024-03-12 17:38] LABS: Slide Review Reflex No
[2024-03-12] MEDS: 0.9 % SODIUM CHLORIDE 500 ML 500 ML IV (17:51)
[2024-03-12 17:55] LABS: Albumin* 4.1 g/dL (3.3-5.0); Chloride* 105 mmol/L (96-114); Sodium* 137 mmol/L (135-149)
[2024-03-12 17:56] LABS: Potassium* 4.3 mmol/L (3.6-5.1)
[2024-03-12 17:57] LABS: INR 0.93 (0.91-1.10)
[2024-03-12 17:58] LABS: Alanine Aminotransferase* 21 U/L (4-35); Alkaline Phosphatase* 115 U/L (40-150); Anion Gap 9 mEq/L (7-15); Aspartate Amino Transferase* 33 U/L (12-35); Bilirubin Total* 0.6 mg/dL (0.1-1.5); Blood Urea Nitrogen* 25 mg/dL (7-30); Carbon Dioxide* 23 mmol/L (20-32); Creatinine* 0.9 mg/dL (0.5-1.5); Estimated Glomerular Filt Rate 61 ml/min; Total Protein* 7.1 g/dL (6.0-8.3)
[2024-03-12 17:59] LABS: Calcium* 8.7 mg/dL (8.4-10.6); Glucose* 149 mg/dL (60-115)
[2024-03-12 18:01] LABS: C Reactive Protein* 0.8 mg/dL (0.5-1.0)
[2024-03-12] MEDS: SODIUM CHLORIDE 0.9 % (FLUSH) 10 ML SYRINGE 5 ML IVF (19:40)
[2024-03-12] MEDS: ACETAMINOPHEN 325 MG TABLET 975 MG PO (19:45)
[2024-03-12] MEDS: hydrOXYzine pamoate 25 MG CAPSULE PO (19:46)
--- NOTE | 2024-03-12 19:50 | PC.NURSE ---
End of shift report [id number]: Alert, oriented to self and date. Patient asking same questions from creative writer each time in room, patient does not remember asking the questions previously and unable to remember previous answers to questions. Pain reported to left hip, patient does report moderate relief of pain from IV morphine but relief lasts 25-30 minutes and then patient is reporting pain that is severe again. Oxycodone administered with no relief reported. Lidocaine patch present to left buttock on arrival to room. No bruising or injury visible to left hip or left lower extremity. Transfers with min assist x 1 with gait belt and walker, patient pivots onto bedside commode for toileting. Dtr Mitali called and will be coming to hospital in the morning to be present for MD rounds. IV placed to left AC by Betty HENSLEY, IV patent and utilized for 500cc IV fluid bolus ordered, rate reduced to 100cc/hr due to high pressure alarm, Lula Muñoz notified and in agreement to slower rate of fluid.
[2024-03-12] MEDS: DORZOLAMIDE/TIMOLOL 2-0.5% OPHTH 1 DROP EYE-RIGHT (22:33)
[2024-03-12] MEDS: LATANOPROST 0.005% OPHTH 1 DROP EYE-BOTH (22:33)
[2024-03-13] VITALS (10 sets, daily range): BP systolic 135–166; BP diastolic 76–97; PULSE 73–97; RESP 18; TEMP 36.7–37.1; O2SAT 90–95
--- NOTE | 2024-03-13 00:09 | PC.NURSE ---
Rates pain at 10/10 upon resuming care at 1900, observed to be restless, moaning, wincing. Morphine, Vistaril, and Tylenol given and ice applied to left posterior hip. Declines aromatherapy and noise machine. Reports pain is spasmodic in nature and is 10/10 when in a spasm and less when spasm ends but is never pain free. After medications/ice patient was able to sleep for a time. Upon reassessing tonight patient says pain is 10/10 but is much less restless. Non verbal s/sx of pain have subsided but patient does rate pain at 10/10 again, Oxycodone given. Continous pulse ox on. VSS. Denies CP,SOB,nausea. Encouraged po intake. Discussed importance of ankle pumps,SCDS,C/DB. States she had a normal BM yesterday and is open to taking a stool softener in AM.
[2024-03-13] MEDS: ACETAMINOPHEN 325 MG TABLET 975 MG PO ×2 (02:35→09:01)
[2024-03-13] MEDS: hydrOXYzine pamoate 25 MG CAPSULE PO ×2 (02:36→09:00)
[2024-03-13] MEDS: OXYCODONE 5 MG TABLET PO ×2 (04:18→09:00)
--- NOTE | 2024-03-13 06:54 | PC.NURSE ---
Addendum entered by Sarah Nielson RN 03/13/24 06:59: correction securities underwriter had pt from Original Note: : Pleasant and cooperative. Rating pain to left hip 12/05, see eMAR, pt able to get some rest & was asleep at end of shift. A x 2 pivot to BS, needs direction with movements, pt did not void with 1st attempt, bladder scanned for 250mL, pt did void shortly after for 150mL. Active ice to hip, pt removed lidocaine patch, securities underwriter found on floor. Pt took off tele leads, pt needed to be reminded to keep them on, pt did not tolerate SCDs. MRI to be performed today 03/13.
[2024-03-13 07:00] LABS: Chloride* 107 mmol/L (96-114); Sodium* 138 mmol/L (135-149)
[2024-03-13 07:01] LABS: Hematocrit 34.3 % (33.0-51.0); Hemoglobin* 10.9 gm/dL (12.0-16.0); Mean Corpuscular HGB Conc 32 gm/dL (32-36); Mean Corpuscular Hemoglobin 30 pg (26-34); Mean Corpuscular Volume 93 fL (80-100); Platelet Count* 272 K/uL (140-440); Red Blood Count 3.69 m/uL (4.00-5.20); White Blood Count* 12.94 K/uL (4.50-11.00)
[2024-03-13 07:03] LABS: Anion Gap 5 mEq/L (7-15); Blood Urea Nitrogen* 29 mg/dL (7-30); Calcium* 8.5 mg/dL (8.4-10.6); Carbon Dioxide* 26 mmol/L (20-32); Creatinine* 0.9 mg/dL (0.5-1.5); Est. Creatinine Clearance* 33.58; Estimated Glomerular Filt Rate 61 ml/min; Glucose* 91 mg/dL (60-115)
[2024-03-13 07:06] LABS: Slide Review Reflex No
[2024-03-13] MEDS: DORZOLAMIDE/TIMOLOL 2-0.5% OPHTH 1 DROP EYE-RIGHT ×2 (08:59→20:02)
[2024-03-13] MEDS: SODIUM CHLORIDE 0.9 % (FLUSH) 10 ML SYRINGE 5 ML IVF ×2 (09:00→20:02)
--- NOTE | 2024-03-13 09:41 | PM.IMPN1 ---
Progress Note: A&P Assessment and plan (1) Traumatic hematoma of left hip: Problem details: -pt does not endorse an injury but given recent activity and cognitive decline there could have been an injury not reported -not anticoagulated -1.5 gram hemoglobin drop; will follow. Status: Acute (2) Cognitive decline: Problem details: -recommend MOCA to assess. respectful of the fact that she has had benzos and opioids. we can do this in the outpatient setting as well. Status: Acute (3) Acute pain of left hip: Problem details: As above PT/OT, TCU rehab needed decrease opioid use with scheduled tylenol and celebrex Status: Acute (4) Osteoarthritis of left hip: Problem details: Contributing to her pain Status: Acute Subjective Date Seen: 03/13/24 Interval history: Daily Progress Note - Hospital Medicine Day #: 2 CC: hematoma soft tissue, left hip. pain crisis. 24 HOUR UPDATE: pain control is improved; MRI of left hip shows: 1. Edema and intramuscular hemorrhage associated with the left iliopsoas musculature. This could relate either to acute muscle strain or spontaneous intramuscular hemorrhage if the patient is on anticoagulation. No significant tear of the distal tendon. 2. No fracture. 3. Degenerative changes of both hips. No hip joint effusion. 4. Degenerative changes of the spine. Notable Labs, Micro, Rads, Interventions: CBC reflects a mild uptake in her total white blood cell count 12.94. There has been a hemoglobin drop of about 1.5 g with this bleed. 12.4-10.9 Platelets are normal. Electrolytes are normal. Objective: Alert, there seems to be more evidence of memory impairment today. She is moving somewhat better but is still requiring 1 to 2 pursed assistance Vitals: see above Lungs: Clear. Cardiac: S1S2. Extremities I can rotate the left hip with mild discomfort. Extension and flexion about the hip flexors is variably painful. Disposition/Potential discharge - Likely TCU and then returning to her apartment at [facility] Today I spent 50minutes seeing the patient, reviewing Expanse and EPIC notes/diagnostics, discussing the care plan with our care time that includes social work, PT/OT, pharmacy, RT, halfway and documenting my impressions and plan in the medical record. Exam Const: Vital Signs, click to edit/add: Vital Signs - 24 hr 03/12/24 12:07 03/12/24 12:15 03/12/24 12:30 Temperature Pulse Rate 93 88 88 Pulse Rate [Left R adial] Pulse Rate [Left] Pulse Rate [Pulse Oximeter] Pulse Rate [Right Pulse Oximeter] Respiratory Rate Blood Pressure Blood Pressure [Le ft Arm] Blood Pressure [Le ft Upper Arm] Pulse Oximetry 95 95 97 Oxygen Delivery Me thod Nasal Cannula Nasal Cannula Nasal Cannula Oxygen Flow Rate 2 2 2 03/12/24 12:31 03/12/24 12:49 03/12/24 13:00 Temperature Pulse Rate 88 108 H 104 H Pulse Rate [Left R adial] Pulse Rate [Left] Pulse Rate [Pulse Oximeter] Pulse Rate [Right Pulse Oximeter] Respiratory Rate 18 Blood Pressure 110/61 Blood Pressure [Le ft Arm] Blood Pressure [Le ft Upper Arm] Pulse Oximetry 97 95 96 Oxygen Delivery Me thod Nasal Cannula Nasal Cannula Nasal Cannula Oxygen Flow Rate 2 2 2 03/12/24 13:19 03/12/24 13:31 03/12/24 13:31 Temperature 99.3 F Pulse Rate Pulse Rate [Left R adial] 111 H Pulse Rate [Left] Pulse Rate [Pulse Oximeter] Pulse Rate [Right Pulse Oximeter] 101 H Respiratory Rate 20 20 18 Blood Pressure Blood Pressure [Le ft Arm] 138/64 Blood Pressure [Le ft Upper Arm] 163/66 H Pulse Oximetry 94 93 96 Oxygen Delivery Me thod Room Air Room Air Room Air Oxygen Flow Rate 03/12/24 14:18 03/12/24 15:00 03/12/24 19:30 Temperature 98.7 F 98.7 F Pulse Rate 95 Pulse Rate [Left R adial] 104 H 99 Pulse Rate [Left] Pulse Rate [Pulse Oximeter] Pulse Rate [Right Pulse Oximeter] Respiratory Rate 18 18 Blood Pressure Blood Pressure [Le ft Arm] 148/87 H 124/76 Blood Pressure [Le ft Upper Arm] Pulse Oximetry 96 97 Oxygen Delivery Me thod Room Air Room Air Oxygen Flow Rate 03/12/24 20:13 03/12/24 23:00 03/12/24 23:00 Temperature Pulse Rate Pulse Rate [Left R adial] Pulse Rate [Left] 99 Pulse Rate [Pulse Oximeter] 90 83 Pulse Rate [Right Pulse Oximeter] Respiratory Rate 18 18 16 Blood Pressure Blood Pressure [Le ft Arm] Blood Pressure [Le ft Upper Arm] Pulse Oximetry 93 Oxygen Delivery Me thod Room Air Oxygen Flow Rate 03/13/24 02:17 03/13/24 03:00 03/13/24 06:46 Temperature 98.7 F Pulse Rate 73 78 Pulse Rate [Left R adial] Pulse Rate [Left] Pulse Rate [Pulse Oximeter] 78 Pulse Rate [Right Pulse Oximeter] Respiratory Rate 18 Blood Pressure Blood Pressure [Le ft Arm] 135/91 H Blood Pressure [Le ft Upper Arm] Pulse Oximetry 93 Oxygen Delivery Me thod Room Air Oxygen Flow Rate 03/13/24 08:00 03/13/24 08:00 Temperature 98.1 F Pulse Rate Pulse Rate [Left R adial] Pulse Rate [Left] Pulse Rate [Pulse Oximeter] 91 91 Pulse Rate [Right Pulse Oximeter] Respiratory Rate 18 18 Blood Pressure Blood Pressure [Le ft Arm] 152/76 H Blood Pressure [Le ft Upper Arm] Pulse Oximetry 90 Oxygen Delivery Me thod Room Air Oxygen Flow Rate Labs Labs: Laboratory Results - last 24 hr 03/12/24 03/12/24 03/12/24 09:48 16:13 17:24 WBC 11.49 H RBC 4.17 Hgb 12.4 Hct 38.2 MCV 92 MCH 30 MCHC 33 RDW Coeff of Myke 13.9 Plt Count 294 Neut % (Auto) 90.8 H Lymph % (Auto) 5.2 L Mckinley % (Auto) 3.8 Eos % (Auto) 0.0 Baso % (Auto) 0.0 Neut # (Auto) 10.40 H Lymph # (Auto) 0.60 L Mckinley # (Auto) 0.40 Eos # (Auto) 0.00 Baso # (Auto) 0.00 Abs Immat Gran (auto) 0.00 Imm/Tot Granulo (auto) 0.2 INR 0.93 VBG pH 7.355 VBG pCO2 43 VBG pO2 38.6 VBG HCO3 24 Sodium 137 Potassium 4.3 Chloride 105 Carbon Dioxide 23 Anion Gap 9 BUN 25 Creatinine 0.9 Estimated Creat Clear Estimated GFR 61 Glucose 149 H Calcium 8.7 Ionized Calcium Valentin 1.12 Magnesium 2.0 Total Bilirubin 0.6 AST 33 ALT 21 Alkaline Phosphatase 115 C-Reactive Protein 0.8 Total Protein 7.1 Albumin 4.1 Urine Color Yellow Urine Appearance Clear Urine pH 6.0 Ur Specific [place] 1.015 Urine Protein Negative Urine Glucose (UA) Negative Urine Ketones Trace A Urine Blood Negative Urine Nitrite Negative Urine Bilirubin Negative Urine Urobilinogen 0.2 Ur Leukocyte Esterase Negative POC Creatinine 1.2 03/13/24 05:45 WBC 12.94 H RBC 3.69 L Hgb 10.9 L Hct 34.3 MCV 93 MCH 30 MCHC 32 RDW Coeff of [place]ke Plt Count 272 Neut % (Auto) Lymph % (Auto) Mckinley % (Auto) Eos % (Auto) Baso % (Auto) Neut # (Auto) Lymph # (Auto) Mckinley # (Auto) Eos # (Auto) Baso # (Auto) Abs Immat Gran (auto) Imm/Tot Granulo (auto) INR VBG pH VBG pCO2 VBG pO2 VBG HCO3 Sodium 138 Potassium 4.0 Chloride 107 Carbon Dioxide 26 Anion Gap 5 L BUN 29 Creatinine 0.9 Estimated Creat Clear 33.58 Estimated GFR 61 Glucose 91 Calcium 8.5 Ionized Calcium Valentin Magnesium Total Bilirubin AST ALT Alkaline Phosphatase C-Reactive Protein Total Protein Albumin Urine Color Urine Appearance Urine pH Ur Specific [place] Urine Protein Urine Glucose (UA) Urine Ketones Urine Blood Urine Nitrite Urine Bilirubin Urine Urobilinogen Ur Leukocyte Esterase POC Creatinine
--- NOTE | 2024-03-13 10:58 | NUTR.NU ---
RDN with nutrition screen related to positive skin risk. Patient admitted for left hip pain and hematoma. Patient resides at [facility]. Current weight 182 lb; height 5ft 4in; BMI 31.2 kg/m2. Per tucker history, weight has been stable recently. Current diet order is Regular. Meal intakes have been adequate since admit at 75%. With stable weight and good intakes, no nutrition interventions at this time. RDN will continue to monitor and follow-up prn.
[2024-03-13] MEDS: CELECOXIB 200 MG CAPSULE PO (11:04)
[2024-03-13] MEDS: LORazepam 2 MG/ML inj 0.5 MG IVP (12:09)
[2024-03-13] MEDS: MORPHINE 2 MG/ML inj IVP (12:10)
--- NOTE | 2024-03-13 13:09 | PC.SOCIAL ---
Addendum entered by Lory Lincoln, HILDA 03/13/24 16:50: Discharge planning: direct support worker met with pt and her daughter, Mitali, again this afternoon and they now want this worker to look at openings at [facility]. direct support worker emailed Karen at [facility] and she shared they had one opening for Sunday on the TCU and could review the pt referral. Karen said the pt did need to be a one person assist with transfers due to staffing. This pt is currently a one person assist with transfers. direct support worker secure emailed the referral to Karen at [facility]. Social work to follow-up as needed. Addendum entered by Lory Lincoln, HILDA 03/13/24 13:29: Discharge planning: Dane with [facility] has sent the referral for the pt out to the [place] facilities for review, but is not confident that there will be a bed available at any of the facilities on Sunday. direct support worker will also have [facility] assess the referral. Social work to follow-up as needed. Original Note: Discharge planning: Pt is being recommended for short-term rehab after discharge. direct support worker met with pt and her daughter, Mitali, to discuss facilities of choice for placement. direct support worker provided the pt and her daughter with a copy of the list of Area Longterm Facilities. Originally, the family shared that they would like this worker to look at [facility] in [facility] [place] [facility]. [place] does not currently have any openings. direct support worker then received a call from pt's daughter, Mitali, whom shared that she wanted this worker to look for placement in [place] as [place] is closer to where both of the daughters live. [facility], [facility] and [facility] are all in [place] and are [facility] facilities. direct support worker sent a referral to Dane Sher with [facility] via secure email to have assessed for all three facilities. direct support worker also contacted [facility] in [place] and they do not have any short-term female rehab beds until the end of next week, so that will not be an option for the pt. Social work to follow-up as needed.
--- NOTE | 2024-03-13 15:22 | PC.NURSE ---
End of shift note. pt has been Pleasant. she is alert x3 but she is forgetful. she is rating her left hip pain to left hip 7-9/10, she is getting po pain meds. she is up with 2 assist walker and GB. PT and OT worked with her. she needs help and direction with movements, Active ice to hip on and off. she had a MRI. tele shows NSR. she is a fall risk and alarms are on
[2024-03-13] MEDS: LIDOCAINE 5% PATCH 1 PATCH TRANSDERMA (15:52)
--- NOTE | 2024-03-13 17:09 | CRLHL7_ITS ---
For Patients: As a result of the Century Cures Act, medical imaging exams and procedure reports are released immediately into your electronic medical record. You may view this report before your referring provider. If you have questions, please contact your health care provider. CLINICAL INDICATION: Left hip pain. Left iliopsoas hematoma. COMPARISON IMAGING STUDIES: CT from 03/12/2024. Radiographs from 03/12/2024. TECHNICAL: Axial, sagittal and coronal PDFS small field of view images of the left hip. Coronal and axial T1 and PDFS large field of view images of the entire pelvis. 1.5 Becky MR scanner. FINDINGS: LEFT HIP: Degenerative changes of the left hip. No hip joint effusion. 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 Mild thinning of the femoral head articular cartilage (grade 2). Multifocal degenerative acetabular labral tearing is present. RIGHT HIP: Degenerative changes of the right hip. 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 Degenerative labral tearing. No hip joint effusion. OSSEOUS STRUCTURES: No acute fracture or avascular necrosis. MUSCULOTENDINOUS STRUCTURES AND BURSAE: Interstitial muscle signal abnormality is present within the iliopsoas muscle on the left reflecting a combination of edema and hemorrhage. No high-grade tear of the distal tendon. Contralateral right iliopsoas intact. Areas of fatty replacement of the gluteus minimus muscles compatible with chronic strain changes. Mild tendinosis of the common hamstring tendons. OTHER FINDINGS: Degenerative changes of the spine. Degenerative changes of the sacroiliac joints. Degenerative changes of the pubic symphysis. INTRAPELVIC CONTENTS: Colonic diverticulosis. No inguinal hernia. IMPRESSION: 1. Edema and intramuscular hemorrhage associated with the left iliopsoas musculature. This could relate either to acute muscle strain or spontaneous intramuscular hemorrhage if the patient is on anticoagulation. No significant tear of the distal tendon. 2. No fracture. 3. Degenerative changes of both hips. No hip joint effusion. 4. Degenerative changes of the spine. Dictated by Doug Bethea MD @ 03/13/2024 1:20:56 PM (Electronically Signed)
[2024-03-13] MEDS: OXYCODONE 5 MG TABLET 2.5 MG PO ×2 (18:07→23:11)
[2024-03-13] MEDS: ACETAMINOPHEN 650 MG TABLET ER 1300 MG PO (20:01)
[2024-03-13] MEDS: MELATONIN 3 MG TABLET 6 MG PO (20:01)
[2024-03-13] MEDS: LATANOPROST 0.005% OPHTH 1 DROP EYE-BOTH (20:02)
[2024-03-14] MEDS: OXYCODONE 5 MG TABLET 2.5 MG PO ×2 (03:02→09:33)
[2024-03-14 03:21] VITALS: BP 161/79; PULSE 91; RESP 16; TEMP 37; O2SAT 94
--- NOTE | 2024-03-14 03:41 | PC.NURSE ---
Pt was able to walk to BR A1 and walker at beginning of shift. By 2300 pt just wanted to use bedside commode. Rates pain 8-10/10. VS unremarkable. Tele NSR
[2024-03-14 06:49] LABS: Basophils Absolute Auto 0.04 K/uL (0.00-0.30); Basophils Percent Auto 0.4 % (0.0-3.0); Eosinophils Absolute Auto 0.24 K/uL (0.00-0.50); Eosinophils Percent Auto 2.7 % (0.0-7.0); Hematocrit 34.5 % (33.0-51.0); Immature Granulocytes Abs Auto 0.01 K/uL (0.00-0.30); Immature Granulocytes Pct Auto 0.1 %; Lymphocytes Percent Auto 14.6 % (20-44); Mean Corpuscular HGB Conc 32 gm/dL (32-36); Mean Corpuscular Hemoglobin 30 pg (26-34); Mean Corpuscular Volume 93 fL (80-100); Monocytes Percent Auto 9.7 % (0.0-11.0); Neutrophils Percent Auto 72.5 % (42.0-72.0); Platelet Count* 270 K/uL (140-440); RDW Coefficient of Variation % 14.2 % (11.5-15.5); Red Blood Count 3.72 m/uL (4.00-5.20); White Blood Count* 8.98 K/uL (4.50-11.00)
[2024-03-14 06:55] LABS: Slide Review Reflex No
[2024-03-14 06:58] LABS: Chloride* 108 mmol/L (96-114); Potassium* 4.1 mmol/L (3.6-5.1); Sodium* 139 mmol/L (135-149)
[2024-03-14 07:00] LABS: Creatinine* 0.8 mg/dL (0.5-1.5); Est. Creatinine Clearance* 33.58; Estimated Glomerular Filt Rate 71 ml/min
[2024-03-14 07:01] LABS: Anion Gap 5 mEq/L (7-15); Blood Urea Nitrogen* 30 mg/dL (7-30); Calcium* 8.3 mg/dL (8.4-10.6); Carbon Dioxide* 26 mmol/L (20-32); Glucose* 91 mg/dL (60-115)
[2024-03-14 09:30] VITALS: BP 148/78; PULSE 89; RESP 18; TEMP 36.6; O2SAT 96
[2024-03-14] MEDS: CELECOXIB 200 MG CAPSULE PO (09:33)
[2024-03-14] MEDS: SODIUM CHLORIDE 0.9 % (FLUSH) 10 ML SYRINGE 5 ML IVF (09:34)
[2024-03-14] MEDS: DORZOLAMIDE/TIMOLOL 2-0.5% OPHTH 1 DROP EYE-RIGHT (09:34)
[2024-03-14 10:14] VITALS: PULSE 94
[2024-03-14 10:29] LABS: SARS Antigen* Negative (Negative)
--- NOTE | 2024-03-14 12:07 | PC.SOCIAL ---
Addendum entered by HILDA Lundberg 03/14/24 13:59: Discharge planning: Prior authorization with Medicare Advantage Plan was approved and the confirmation was sent to Karen at [facility] via secure email. Social work to follow-up as needed. Original Note: Discharge planning: Pt was accepted at [facility] for today, private room shared bathroom. Prior Authorization was placed by the Utilization Review team here at the hospital with pt's Medicare Advantage plan through [employer]. [facility] wanted the pt by around noon today and we are still waiting for the prior authorization to come back. fire crew worker spoke to Karen at [facility] about this update and she shared that she was able to confirm that the pt's insurance is active and that it was okay to send the pt over to them with the prior authorization still pending. Karen said that they work a lot with [employer] and are fine with accepting the pt while the prior authorization is still pending. fire crew worker secure emailed the discharge orders to Karen at [facility] and also secure emailed her a copy of the pt's negative COVID test. Pre-admission screening was completed and sent to Karen via secure email, as well, [id number]. Pt will be transporting via non-emergent EMS per daughter's request. Pt's daughter, Mitali, is aware that there will be a charge for the transportation to [facility], which will be $113.00($92.00 to pick the pt up and then $7 per mile, [facility] is three miles from the hospital, 7x3= 21+92= 113. Pt's daughter Mitali signed the non-emergent transportation form and is in agreement with the cost. Social work to follow-up as needed.
--- NOTE | 2024-03-14 13:25 | PC.NURSE ---
Discharge: Patient pleasant and cooperative. VSS. SpO2 maintained above 90% on RA. Patient reports pain on her left hip this shift, managed with PRN medication, see APR. IV removed with tip intact. Discharged to [facility] via non emergent EMS.
--- NOTE | 2024-03-14 17:45 | PM.DS1 ---
DS: Providers Provider Date Seen: 03/14/24 Date of admission: 03/13/24 15:56 Primary care physician: Ed De La Rosa MD Admitting Clinician: Beth Geiger MD Consults: 03/12/24 14:18 Consult to Occupational Therapy [CONS] Routine Comment: Reason(s) for OT Consult:: Evaluate and Treat Any Restrictions?:: No Restrictions Consult to Physical Therapy [CONS] Routine Comment: Reason(s) for PT Consult:: Evaluate and Treat Any Restrictions?:: No Restrictions Consult to Front Desk Auxiliary [CONS] Routine Comment: Reason for Consult:: Social Service Consult Attending Physician on discharge: Beth Geiger MD Date of Discharge: 03/14/24 DS: Diagnosis Discharge Diagnosis (1) Traumatic hematoma of left hip: Status: Acute Problem details: -pt does not endorse an injury but given recent activity and cognitive decline there could have been an injury not reported -not anticoagulated -1.5 gram hemoglobin loss (2) Cognitive decline: Status: Acute Problem details: -recommend MOCA to assess. respectful of the fact that she has had benzos and opioids. we can do this in the outpatient setting as well. (3) Acute pain of left hip: Status: Acute Problem details: As above PT/OT, TCU rehab needed decrease opioid use with scheduled tylenol and celebrex (4) Osteoarthritis of left hip: Status: Acute Problem details: Contributing to her pain DS: Summary Hospital Course Hospital Course: FINAL DIAGNOSIS/FOLLOW UP ISSUES: 1. Traumatic hematoma left hip. Continue rehab in a TCU setting. Decreased opioids. Scheduled Tylenol and Steele 2 inhibitor. 2. Cognitive decline. This may be acute secondary to blood loss, inpatient setting and pain and pain medicines. Follow this and test cognition in the outpatient setting. BRIEF HOSPITAL COURSE: Patient was admitted for 3 days. Synopsis of acute inpatient issues are outlined above. Chronic medical conditions with notable findings outlined above. Jessica presented with acute onset of left hip pain. It was unbearable. CT scan of the pelvis and follow-up left hip MRI revealed and I traumatic hematoma of the left iliopsoas muscle. This likely happened with a hyper extension move getting into the car last weekend or maybe and on reported minimal injury. She was not on and has not been on anticoagulation. DISCHARGE MEDICATIONS: See Reconciled list - SIGNIFICANT CHANGES: Tylenol, Celebrex, muscle relaxant, Zofran, opioids see discharge med list. Specific instructions to the patient and follow-up are outlined below. REVIEW OF SYSTEMS No new chest pain or dyspnea Pain controlled No voiding difficulties Tolerating diet challenge PHYSICAL EXAM: CONSTITUTIONAL: Alert. Does not always follow directions or have insight. VITAL SIGNS: see record. HEENT: Normocephalic, atraumatic. PERRL, EOMI, conjunctivae pink, no scleral icterus. Ears and nose externally normal. Pharynx normal. NECK: No JVD. No carotid bruit, no thyromegaly, no adenopathy. CHEST: Clear to auscultation bilaterally. HEART: S1 and S2 normal. Edema ABDOMEN: Soft, nontender. Normal bowel sounds. MUSCULOSKELETAL: Painful to external rotation and extension of the left hip. This seems slightly improved today. NEURO: Cranial nerves intact. Grossly intact. No asymmetric findings. SKIN: No rashes, petechiae, concerning changes PSYCHIATRIC: Mood euthymic. DISPOSITION: Tcu. Time spent on discharge 37 minutes. Status at Discharge Functional status at discharge: uses cane/walker Overall status at discharge: patient is progressing back to baseline Time Spent with Patient Time attestation: Total time spent providing and/or coordinating discharge services: Time spent: Greater than 30 minutes Exam Const: Vital Signs, click to edit/add: Vital Signs - 24 hr 03/13/24 19:42 03/13/24 20:01 03/13/24 22:27 Temperature 98.6 F 98.6 F Pulse Rate 75 Pulse Rate [Pulse Oximeter] 86 Respiratory Rate 18 Blood Pressure [Le ft Arm] 166/97 H Pulse Oximetry 95 Oxygen Delivery Me thod Room Air Oxygen Flow Rate 0 03/13/24 22:27 03/13/24 22:38 03/14/24 03:21 Temperature 98.6 F 98.6 F Pulse Rate Pulse Rate [Pulse Oximeter] 75 75 91 Respiratory Rate 18 18 16 Blood Pressure [Le ft Arm] 161/79 H Pulse Oximetry 95 94 Oxygen Delivery Me thod Room Air Room Air Oxygen Flow Rate 0 03/14/24 09:30 03/14/24 10:14 Temperature 97.8 F Pulse Rate 94 Pulse Rate [Pulse Oximeter] 89 Respiratory Rate 18 Blood Pressure [Le ft Arm] 148/78 H Pulse Oximetry 96 Oxygen Delivery Me thod Room Air Oxygen Flow Rate DS: Data Data Completed and Pending Labs on day of discharge: Labs from last 24 hours 03/14/24 03/14/24 09:28 05:48 WBC 8.98 RBC 3.72 L Hgb 11.0 L Hct 34.5 MCV 93 MCH 30 MCHC 32 RDW Coeff of Myke 14.2 Plt Count 270 Neut % (Auto) 72.5 H Lymph % (Auto) 14.6 L [place] % (Auto) 9.7 Eos % (Auto) 2.7 Baso % (Auto) 0.4 Neut # (Auto) 6.50 Lymph # (Auto) 1.30 [place] # (Auto) 0.90 Eos # (Auto) 0.24 Baso # (Auto) 0.04 Abs Immat Gran (auto) 0.01 Imm/Tot Granulo (auto) 0.1 Sodium 139 Potassium 4.1 Chloride 108 Carbon Dioxide 26 Anion Gap 5 L BUN 30 Creatinine 0.8 Estimated Creat Clear 33.58 Estimated GFR 71 Glucose 91 Calcium 8.3 L SARS-CoV-2 Ag (Rapid) Negative Discharge Plan Discharge Disposition: [facility] Date of Admission: 03/13/24 15:56 Attending Provider on Discharge: Beth Geiger Primary Care Provider: Ed De La Rosa Condition: Stable Discharge Medications: New celecoxib 200 mg Capsule 200 mg PO DAILY Qty: 30 0RF lidocaine 5 % Adhesive Patch,Medicated 1 patch transdermal Q24H Qty: 30 0RF ondansetron 4 mg Tablet,Disintegrating 4 mg PO Q6H PRNQty: 20 0RF oxycodone 5 mg Tablet 2.5 mg PO Q4H PRN (Reason: Pain) Qty: 20 0RF acetaminophen [Arthritis Pain Reliever] 650 mg tablet extended release 1,300 mg PO Q8H Qty: 90 0RF cyclobenzaprine 5 mg tablet 5 mg PO TID PRN (Reason: muscle spasm) Qty: 30 0RF Continued latanoprost 0.005 % drops 1 drp ophthalmic (eye) HS Patient Comments: both eyes dorzolamide-timolol 22.3-6.8 mg/mL drops 1 drp ophthalmic (eye) BID Patient Comments: right eye Held furosemide [Lasix] 20 mg tablet 20 mg PO QAM PRN (Reason: edema) Qty: 30 0RF Hold Instructions: Resume on 04/26/24. Discontinued ibuprofen 200 mg tablet 200 mg PO Q6H PRN Discharge Orders: Discharge Order (Routine); Ordered 03/14/24 Ordered By: Beth Geiger Additional Instructions: For SNF PT/OT: Left hip MRI: Interstitial muscle signal abnormality is present within the iliopsoas muscle on the left reflecting a combination of edema and hemorrhage. No high-grade tear of the distal tendon Activity Level: Activity as Tolerated, Weight Bearing as Tolerated and Use Walker Discharge Diet: Regular Follow Up Appointments: Ed De La Rosa MD [Primary Care Provider] - 04/04/24 (follow-up hospitalization for hematoma; cognitive decline. ) Forms: [employer] Info Instructions Admit to: SNF Discharge Potential: Good Length of Stay: <30 days Can use facility standing orders?: Yes Code Status: Full Code TEDs: N/A Rehab Potential: Good Therapy: Physical Therapy and Occupational Therapy Therapy Orders: Evaluate and Treat, Gait Training and ADL Therapy Orders Additional Information: Oxygen: No Urinary Catheter: No Orders are good >30 days: Yes
== END 2024-03-14 12:45 | DRG 605 ==
LOC: ED 12:53 → MEDSURG 14:48
PROVIDERS: Admitting Provider Family Medicine; Emergency Provider Family Medicine; PCP Internal Medicine; Visit Provider Family Medicine
DX: S70.02XA Contusion of left hip, initial encounter (principal); D62 Acute posthemorrhagic anemia; M25.552 Pain in left hip; M16.12 Unilateral primary osteoarthritis, left hip; M51.369 Other intervertebral disc degeneration, lumbar region without mention of lumbar back pain or lower extremity pain; M47.816 Spondylosis without myelopathy or radiculopathy, lumbar region; R41.81 Age-related cognitive decline
CPT/HCPCS: 36415; 51798; 72100; 72193; 73502; 73721; 80048; 80053; 81003; 82330; 82565; 82803; 83735; 85025; 85027; 85610; 86140; 87081; 87426; 93005; 97116; 97161; 97165; 97530; 97535; 99284; 99285; G0378; A9270; J1885; J2060; J2270; J7030; J7512; Q9967

== ENCOUNTER 2024-03-14 12:23 | Outpatient (CLI) | payer MEDICARE, SELFPAY | END 2024-03-14 12:24 | disposition home or self-care (01) | LOC: AMB 03-26 19:13 | PROVIDERS: PCP Internal Medicine; Visit Provider Internal Medicine | DX: M25.552 Pain in left hip (principal); Z99.3 Dependence on wheelchair | CPT/HCPCS: A0425; A0428 ==